=== PATIENT | female | born 1945 | race Caucasian/White ===

== ENCOUNTER 2016-06-11 10:30 | Outpatient (CLI) | payer MEDICARE, OTHER | END 2016-06-11 10:31 | disposition home or self-care (01) | DX: M10.9 Gout, unspecified (principal) ==

== ENCOUNTER 2016-07-16 08:06 | Outpatient (CLI) | payer MEDICARE, OTHER | END 2016-07-16 08:07 | disposition home or self-care (01) | DX: Z00.00 Encounter for general adult medical examination without abnormal findings (principal); E11.9 Type 2 diabetes mellitus without complications ==

== ENCOUNTER 2016-10-14 10:06 | Outpatient (CLI) | payer MEDICARE, OTHER | END 2016-10-14 10:07 | disposition home or self-care (01) | DX: E11.9 Type 2 diabetes mellitus without complications (principal); E78.5 Hyperlipidemia, unspecified; I10 Essential (primary) hypertension; E55.9 Vitamin D deficiency, unspecified ==

== ENCOUNTER 2017-01-09 10:22 | Outpatient (CLI) | payer MEDICARE, OTHER ==
[2017-01-09 17:53] LABS: BASOPHILS % (AUTO) 0.3 %; EOSINOPHILS # (AUTO) 0.6 10^3/uL (0.0-0.7); EOSINOPHILS % (AUTO) 5.6 %; HCT - HEMATOCRIT 45.2 % (37.0-47.0); HGB - HEMOGLOBIN 14.7 g/dL (12.0-16.0); LYMPHOCYTES # (AUTO) 2.8 10^3/uL (1.5-3.5); LYMPHOCYTES % (AUTO) 26.3 %; MEAN CORPUSCULAR HEMOGLOBIN 29.3 pg (27.0-31.0); MEAN CORPUSCULAR HGB CONC 32.5 g/dL (32.0-36.0); MEAN CORPUSCULAR VOLUME 90.1 fL (81.0-99.0); MEAN PLATELET VOLUME 9.7 fL (7.9-10.8); MONOCYTES # (AUTO) 0.6 10^3/uL (0.0-1.0); MONOCYTES % (AUTO) 5.9 %; NEUTROPHILS # (AUTO) 6.6 10^3/uL (1.5-6.6); NEUTROPHILS % (AUTO) 61.9 %; NUCLEATED RED BLOOD CELLS AUTO 0.2 /100WBC; RED BLOOD COUNT 5.01 10^6/uL (4.20-5.40); RED CELL DISTRIBUTION WIDTH 14.4 % (12.0-15.0); UNCORRECTED WHITE BLOOD COUNT 10.6 x10^3/uL; WHITE BLOOD COUNT 10.6 x10^3/uL (4.8-10.8)
[2017-01-09 18:19] LABS: HEMOGLOBIN A1C 0.79 g/dL
[2017-01-09 18:27] LABS: ALBUMIN/GLOBULIN RATIO 1.3 (1.0-2.2); BILIRUBIN,TOTAL 0.9 mg/dL (0.2-1.0); BUN - BLOOD UREA NITROGEN 23 mg/dL (6-20); CALCIUM 9.1 mg/dL (8.5-10.3); CARBON DIOXIDE - CO2 25 mmol/L (21-32); CHLORIDE 103 mmol/L (101-111); CHOL/HDL RATIO 4.6 (<4.4); CHOLESTEROL 142 mg/dL; GFR - MDRD 55 (>89); GLUCOSE 194 mg/dL (70-100); HDL CHOLESTEROL 31 mg/dL; LDL/HDL RATIO 2.8 (<4.4); POTASSIUM 3.4 mmol/L (3.5-5.0); SODIUM 136 mmol/L (135-145); TOTAL PROTEIN 6.1 g/dL (6.7-8.2); TRIGLYCERIDES 122 mg/dL; VLDL CHOLESTEROL 24 mg/dL
== END 2017-01-09 10:23 | disposition home or self-care (01) ==
LOC: LAB.F 10:22
PROVIDERS: ATTEND Family Medicine
DX: Z00.00 Encounter for general adult medical examination without abnormal findings (principal); I10 Essential (primary) hypertension; E11.9 Type 2 diabetes mellitus without complications; E78.5 Hyperlipidemia, unspecified; E55.9 Vitamin D deficiency, unspecified; I89.0 Lymphedema, not elsewhere classified
CPT/HCPCS: 36415; 80053; 80061; 82306; 83036; 85025

== ENCOUNTER 2017-09-10 10:10 | Outpatient (CLI) | payer MEDICARE, OTHER ==
[2017-09-10 18:40] LABS: HB2 TOTAL 16.2 g/dL; HEMOGLOBIN A1C 1.25 g/dL; HEMOGLOBIN A1C % 9.2 % (4.6-6.2)
== END 2017-09-10 10:11 | disposition home or self-care (01) ==
LOC: LAB.F 10:10
PROVIDERS: ATTEND Family Medicine
DX: E11.9 Type 2 diabetes mellitus without complications (principal)
CPT/HCPCS: 36415; 83036

== ENCOUNTER 2018-01-18 13:39 | Outpatient (CLI) | payer MEDICARE, OTHER ==
[2018-01-18 20:20] LABS: HB2 TOTAL 15.7 g/dL; HEMOGLOBIN A1C 0.83 g/dL
== END 2018-01-18 13:40 | disposition home or self-care (01) ==
LOC: LAB.F 13:39
PROVIDERS: ATTEND Family Medicine
DX: E11.9 Type 2 diabetes mellitus without complications (principal)
CPT/HCPCS: 36415; 80048; 83036

== ENCOUNTER 2018-04-30 08:00 | Outpatient (CLI) | payer MEDICARE, OTHER ==
[2018-04-30 13:27] LABS: MUDS CUTOFF CONCENTRATIONS CUTOFF CONC BELOW:
[2018-04-30 13:54] LABS: AMPHETAMINE SCREEN,URINE NEGATIVE (NEGATIVE); BENZODIAZEPINES SCREEN, URINE NEGATIVE (NEGATIVE); COCAINE SCREEN URINE NEGATIVE (NEGATIVE); METHADONE SCREEN, URINE NEGATIVE (NEGATIVE); METHAMPHETAMINES SCREEN, URINE NEGATIVE (NEGATIVE); OPIATE SCREEN, URINE NEGATIVE (NEGATIVE); TRICYCLIC ANTIDEPRESSANT,URINE NEGATIVE (NEGATIVE)
[2018-04-30 13:55] LABS: OXYCODONE SCREEN, URINE POSITIVE (NEGATIVE); PROPOXYPHENE SCREEN, URINE NEGATIVE (NEGATIVE)
== END 2018-04-30 23:59 ==
LOC: LAB.R 08:00
PROVIDERS: ATTEND Nurse Practitioner Family
DX: Z79.891 Long term (current) use of opiate analgesic (principal)
CPT/HCPCS: 80306

== ENCOUNTER 2018-07-06 08:08 | Outpatient (CLI) | payer MEDICARE, OTHER ==
[2018-07-06 10:45] LABS: HGB - HEMOGLOBIN 15.5 g/dL (12.0-16.0); MEAN CORPUSCULAR HEMOGLOBIN 29.3 pg (27.0-31.0); MEAN CORPUSCULAR HGB CONC 33.8 g/dL (32.0-36.0); MEAN CORPUSCULAR VOLUME 86.7 fL (81.0-99.0); RED BLOOD COUNT 5.27 10^6/uL (4.20-5.40); RED CELL DISTRIBUTION WIDTH 14.4 % (12.0-15.0); WHITE BLOOD COUNT 10.3 x10^3/uL (4.8-10.8)
[2018-07-06 10:46] LABS: ALBUMIN 3.7 g/dL (3.2-5.5); ALBUMIN/GLOBULIN RATIO 1.4 (1.0-2.2); ALKALINE PHOSPHATASE 60 IU/L (42-121); ALT ALANINE AMINOTRANSFERASE 40 IU/L (10-60); AST ASPARTATE AMINOTRANSFERASE 38 IU/L (10-42); BILIRUBIN,TOTAL 1.1 mg/dL (0.2-1.0); BUN - BLOOD UREA NITROGEN 25 mg/dL (6-20); CHOL/HDL RATIO 3.6 (<4.4); CHOLESTEROL 109 mg/dL; CREATININE 0.9 mg/dL (0.4-1.0); GFR - MDRD 62 (>89); HDL CHOLESTEROL 30 mg/dL; LDL CHOLESTEROL,CALCULATED 55 mg/dL; LDL/HDL RATIO 1.8 (<4.4); TOTAL PROTEIN 6.3 g/dL (6.7-8.2); VLDL CHOLESTEROL 24 mg/dL
[2018-07-06 11:04] LABS: HB2 TOTAL 17.1 g/dL; HEMOGLOBIN A1C 0.7 g/dL; HEMOGLOBIN A1C % 5.9 % (4.6-6.2)
[2018-07-06 11:19] LABS: CALCIUM 9.1 mg/dL (8.5-10.3); CARBON DIOXIDE - CO2 25 mmol/L (21-32); CHLORIDE 103 mmol/L (101-111); GLUCOSE 127 mg/dL (70-100); SODIUM 139 mmol/L (135-145)
== END 2018-07-06 08:09 | disposition home or self-care (01) ==
LOC: LAB.F 08:08
PROVIDERS: ATTEND Family Medicine
DX: Z00.00 Encounter for general adult medical examination without abnormal findings (principal); E11.8 Type 2 diabetes mellitus with unspecified complications
CPT/HCPCS: 36415; 80053; 80061; 83036; 83721; 85027

== ENCOUNTER 2019-05-23 13:17 | Outpatient (CLI) | payer MEDICARE, OTHER ==
--- NOTE | 2019-05-24 14:07 | Mammography Report ---
Reason: SELF REFERRING MAMMO Procedure Date: 05/23/2019 Accession Number: [id number] / [id number] Procedure: MGS - Screening Mammo Dig Bilat CPT Code: Final Report FULL RESULT: EXAM: Screening Mammo Dig Bilat DATE: 05/23/2019 2:03 PM CLINICAL HISTORY: Routine screening TECHNIQUE: (B) - Bilateral CC and MLO views were obtained. COMPARISON: 02/16/2013, 01/08/2012, 12/24/2010 PARENCHYMAL PATTERN: (A) - The breasts demonstrate scattered fibroglandular densities bilaterally. FINDINGS: Right: No significant interval change. There are no suspicious masses, calcifications, or areas of distortion. Needs repeat nipple in profile view. Left: New 6 mm cluster of microcalcifications in the 12:30 position 7 to 8 cm from the nipple. Needs magnification views and repeat nipple in profile view. IMPRESSION: Incomplete examination. BI-RADS category 0. Needs left breast magnification views and bilateral nipple in profile views. RECOMMENDATION: (ADDMAM) - Recommend additional mammographic views. Bilateral BI-RADS CATEGORY: (0) - Incomplete Examination - need additional evaluation. STANDARD QUALIFYING STATEMENTS: 1. This examination was not reviewed with the aid of Computer-Aided Detection (CAD). 2. A negative or benign imaging report should not preclude biopsy if clinically suspicious findings are present. 3. Dense breasts may obscure an underlying neoplasm. 4. This examination was reviewed without the aid of 3D breast imaging (tomosynthesis).
== END 2019-05-23 13:18 | disposition home or self-care (01) ==
LOC: DI.S 13:17
PROVIDERS: ATTEND Family Medicine
DX: Z12.31 Encounter for screening mammogram for malignant neoplasm of breast (principal); R92.1 Mammographic calcification found on diagnostic imaging of breast
CPT/HCPCS: 77067

== ENCOUNTER 2019-06-20 11:06 | Outpatient (CLI) | payer MEDICARE, OTHER ==
--- NOTE | 2019-06-20 12:37 | Mammography Report ---
Reason: ABNORMAL MAMMO Procedure Date: 06/20/2019 Accession Number: [id number] / [id number] Procedure: JOSE L - Diag Special Views Dig LT CPT Code: Final Report FULL RESULT: EXAM: Diag Special Views Dig LT DATE: 06/20/2019 12:08 PM CLINICAL HISTORY: Diagnostic examination. The patient is recalled from screening for calcifications seen in the left breast. TECHNIQUE: (L) - Left spot magnified CC, spot magnified LM, LM and CC images are obtained. COMPARISON: 05/23/2019 through 12/24/2010. PARENCHYMAL PATTERN: (A) - The breast(s) demonstrate(s) scattered fibroglandular densities. FINDINGS: The left breast grouping of calcifications 7 cm from the nipple in the central left breast are redemonstrated and demonstrate pleomorphism, suspicious. There are no suspicious masses or areas of distortion. IMPRESSION: Suspicious findings. BI-RADS category 4. RECOMMENDATION: (BIOPSY) - left breast stereotactic biopsy. BI-RADS CATEGORY: 4A STANDARD QUALIFYING STATEMENTS: 1. This examination was not reviewed with the aid of Computer-Aided Detection (CAD). 2. A negative or benign imaging report should not preclude biopsy if clinically suspicious findings are present. 3. Dense breasts may obscure an underlying neoplasm. 4. This examination was reviewed with the aid of 3D breast imaging (tomosynthesis).
== END 2019-06-20 11:07 | disposition home or self-care (01) ==
LOC: DI 11:06
PROVIDERS: ATTEND Family Medicine
DX: R92.1 Mammographic calcification found on diagnostic imaging of breast (principal)

== ENCOUNTER 2019-07-18 10:15 | Outpatient (CLI) | payer MEDICARE, OTHER ==
--- NOTE | 2019-07-19 16:08 | Ultrasound Report ---
Reason: ENDOCERVICAL POLYP Procedure Date: 07/18/2019 Accession Number: [id number] / [id number] Procedure: US - Pelvic w/Transvaginal CPT Code: Final Report FULL RESULT: EXAM: PELVIC ULTRASOUND. EXAM DATE: 07/18/2019 11:55 AM. CLINICAL HISTORY: Endocervical polyp. COMPARISON: PELVIC 12/23/2010 4:46 PM. TECHNIQUE: Realtime transabdominal pelvic scan performed to identify the uterus and adnexa and as an overview of other pelvic structures, followed by transvaginal scan to provide greater detail of the uterus and adnexa, with static image documentation. FINDINGS: Uterus: 9.7 x 5.7 x 6.4 cm, volume 185 cc. Anteverted position. Masses: Several small fibroids were seen. The largest was located posteriorly, appears partially calcified, and was measured at 4.6 x 4.2 x 4.0 cm. Endometrium: 19 mm. Fluid-filled, with a small 2 mm fluid channel in the anterior endometrial wall. No endometrial polyps detected on current study. Cervix: Several nabothian cysts were seen. Right Ovary: 4.1 x 2.2 x 2.5 cm, volume 11.8 cc. Normal echotexture and blood flow. Left Ovary: 2.8 x 2.1 x 2.3 cm, volume 7.0 cc. Normal echotexture and blood flow. 1.2 x 1.0 x 1.2 cm cyst. Free Fluid: No free fluid in the posterior cul-de-sac. Other: None. IMPRESSION: Fluid-filled endometrial stripe. Uterine fibroids. RADIA
== END 2019-07-18 10:16 | disposition home or self-care (01) ==
LOC: DI 10:15
PROVIDERS: ATTEND Obstetrics & Gynecology
DX: D25.9 Leiomyoma of uterus, unspecified (principal)
CPT/HCPCS: 76830; 76856

== ENCOUNTER 2019-08-05 09:53 | Outpatient (CLI) | payer MEDICARE, OTHER ==
[2019-08-05 10:32] LABS: BASOPHILS # (AUTO) 0.1 10^3/uL (0.0-0.1); BASOPHILS % (AUTO) 0.7 %; EOSINOPHILS # (AUTO) 0.5 10^3/uL (0.0-0.7); EOSINOPHILS % (AUTO) 4.4 %; HGB - HEMOGLOBIN 15.5 g/dL (12.0-16.0); LYMPHOCYTES # (AUTO) 2.9 10^3/uL (1.5-3.5); LYMPHOCYTES % (AUTO) 25.4 %; MEAN CORPUSCULAR HEMOGLOBIN 27.9 pg (27.0-31.0); MEAN CORPUSCULAR HGB CONC 31.8 g/dL (32.0-36.0); MEAN CORPUSCULAR VOLUME 87.8 fL (81.0-99.0); MEAN PLATELET VOLUME 10.6 fL (7.9-10.8); MONOCYTES # (AUTO) 0.8 10^3/uL (0.0-1.0); MONOCYTES % (AUTO) 7.4 %; NEUTROPHILS % (AUTO) 61.7 %; PLT - PLATELET COUNT 270 10^3/uL (130-450); RED BLOOD COUNT 5.56 10^6/uL (4.20-5.40); RED CELL DISTRIBUTION WIDTH 14.1 % (12.0-15.0); WHITE BLOOD COUNT 11.3 x10^3/uL (4.8-10.8)
[2019-08-05 10:45] LABS: ALBUMIN 3.7 g/dL (3.2-5.5); ALBUMIN/GLOBULIN RATIO 1.3 (1.0-2.2); BILIRUBIN,TOTAL 1.1 mg/dL (0.2-1.0); CALCIUM 9.2 mg/dL (8.5-10.3); CREATININE 1.1 mg/dL (0.4-1.0); TOTAL PROTEIN 6.5 g/dL (6.7-8.2)
[2019-08-05 10:55] LABS: HB2 TOTAL 16.3 g/dL; HEMOGLOBIN A1C 0.75 g/dL; HEMOGLOBIN A1C % 6.4 % (4.6-6.2)
== END 2019-08-05 09:54 | disposition home or self-care (01) ==
LOC: LAB 09:53
PROVIDERS: ATTEND Obstetrics & Gynecology
DX: Z01.818 Encounter for other preprocedural examination (principal); N95.0 Postmenopausal bleeding; N84.1 Polyp of cervix uteri; E11.9 Type 2 diabetes mellitus without complications; Z79.4 Long term (current) use of insulin
CPT/HCPCS: 36415; 80053; 83036; 85025

== ENCOUNTER 2019-08-05 10:32 | Outpatient (CLI) | payer MEDICARE, OTHER ==
--- NOTE | 2019-08-05 18:31 | XRAY Report ---
Reason: POST MENOPAUSAL BLEEDING;ENDOCERVICAL POLP Procedure Date: 08/05/2019 Accession Number: [id number] / [id number] Procedure: XR - Chest 2 View X-Ray CPT Code: 50754 Final Report FULL RESULT: EXAM: CHEST RADIOGRAPHY EXAM DATE: 08/05/2019 10:47 AM. CLINICAL HISTORY: Preoperative chest radiograph. COMPARISON: Chest radiograph 02/17/2009. TECHNIQUE: 2 views. FINDINGS: Lungs/Pleura: No focal airspace opacity. No pleural effusion or pneumothorax. Mediastinum: Cardiomediastinal silhouette is within normal limits. Pulmonary vasculature is unremarkable. Other: None. IMPRESSION: No acute cardiopulmonary abnormality. RADIA
== END 2019-08-05 10:33 | disposition home or self-care (01) ==
LOC: DI 10:32
PROVIDERS: ATTEND Obstetrics & Gynecology
DX: Z01.818 Encounter for other preprocedural examination (principal); N95.0 Postmenopausal bleeding; N84.1 Polyp of cervix uteri; E11.9 Type 2 diabetes mellitus without complications; Z79.4 Long term (current) use of insulin
CPT/HCPCS: 36415; 71046; 80053; 83036; 85025; 93005

== ENCOUNTER 2019-08-15 09:16 | Outpatient (CLI) | payer MEDICARE, OTHER | END 2019-08-15 09:17 | disposition home or self-care (01) | LOC: LAB 09:16 | PROVIDERS: ATTEND Obstetrics & Gynecology | DX: Z01.812 Encounter for preprocedural laboratory examination (principal); N95.0 Postmenopausal bleeding; N84.1 Polyp of cervix uteri; E11.9 Type 2 diabetes mellitus without complications | CPT/HCPCS: 36415; 86850; 86900; 86901 ==

== ENCOUNTER 2019-08-17 09:14 | Day surgery (SDC) | payer MEDICARE, OTHER ==
--- NOTE | 2019-08-05 09:58 | CONSULTATION NOTE ---
Consultation Report: I saw this patient today for a preanesthesia consult. She is scheduled for surgery on 08/17/19. She is morbidly obese. She is diabetic taking both insulin and oral antihyperglycemic agents. She denies any history of chest pain/pressure. Denies any history of IA's. Also, denies any history of stroke(s) or stroke like symptoms. She denies any lung disease. She is not a smoker. She has some chronic pain and is on mcc opioid therapy. 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 She is able to walk only short distances because of arthritic knees.She is on antihypertensive meds for BP control. She does get some swelling in her feet and ankles and takes lasix to help with that. She is not on any beta blockers. She denies any history of CHF. We will be getting some labs including A1c and an EKG today. I explained the anesthetic plan to her and she agreed to the same. She had no further questions for me
[~2019-08-17 09:14] MED LIST: CEFAZOLIN SODIUM IN 0.9 % NACL 2 GM/100 ML BAG IV ONE
[2019-08-17] MEDS ORDERED: ONDANSETRON 4 MG/2 ML VIAL IVP ONE (09:15)
[2019-08-17] MEDS ORDERED: MIDAZOLAM 2 MG/2 ML VIAL IVP ONE (09:15)
[2019-08-17] MEDS ORDERED: DEXAMETHASONE 4 MG/ML VIAL IVP ONE (09:15)
[2019-08-17] MEDS ORDERED: LIDOCAINE-MPF 2% 5 ML VIAL IM ONE (09:15)
[2019-08-17] MEDS ORDERED: KETOROLAC 30 MG/ML VIAL IVP ONE (09:15)
[2019-08-17] MEDS ORDERED: ePHEDrine 50 MG/ML VIAL IVP ONE (09:15)
[2019-08-17] MEDS ORDERED: PROPOFOL 200 MG/20 ML VIAL IVP ONE (09:15)
[2019-08-17] MEDS ORDERED: LACTATED RINGERS 1,000 ML IV ONE (10:00)
--- NOTE | 2019-08-17 10:03 | ANESTHESIA ---
Pre-Anesthesia VS, & Labs - Diagnosis post menopausal bleeding - Procedure myosure hysteroscopy Vital Signs: Temp Pulse Resp BP Pulse Ox 37.3 C 84 18 167/94 H 94 08/17/19 09:37 08/17/19 09:37 08/17/19 09:37 08/17/19 09:37 08/17/19 09:37 Height 5 ft 4 in Weight (kg) 112.3 kg - Is Patient ?: No Home Medications and Allergies Home Medications: Ambulatory Orders Allopurinol [Zyloprim] 300 mg PO DAILY 08/05/19 Aspirin [Aspirin EC] 81 mg PO DAILY 08/05/19 Cholecalciferol [Vitamin D3] 5,000 unit PO DAILY 08/05/19 DULoxetine [Cymbalta] 20 mg PO BID 08/05/19 Dulaglutide [Trulicity] 1.5 mg SQ OAW 08/05/19 Felodipine [Felodipine ER] 10 mg PO DAILY 08/05/19 Furosemide 40 mg PO DAILY 08/05/19 Insulin Glargine,Hum.rec.anlog [Touhedyo Solostar] 90 - 100 unit SUBQ DAILY 08/05/19 Oxycodone HCl/Acetaminophen [Oxycodone-Acetaminophen 10-325] 1 each PO DAILY 08/05/19 Potassium Chloride [Klor-Con 10] 10 meq PO DAILY 08/05/19 Quinapril HCl 40 mg PO DAILY 08/05/19 Simvastatin 10 mg PO QPM 08/05/19 metFORMIN [Glucophage] 500 mg PO QDBREAKFAST 08/05/19 traZODone [Desyrel] 50 - 100 mg PO HS PRN 08/05/19 Ibuprofen [Advil] 4 mg PO PRN 08/17/19 Allopurinol [Zyloprim] 300 mg PO DAILY 08/05/19 Aspirin [Aspirin EC] 81 mg PO DAILY 08/05/19 Cholecalciferol [Vitamin D3] 5,000 unit PO DAILY 08/05/19 DULoxetine [Cymbalta] 20 mg PO BID 08/05/19 Dulaglutide [Trulicity] 1.5 mg SQ OAW 08/05/19 Felodipine [Felodipine ER] 10 mg PO DAILY 08/05/19 Furosemide 40 mg PO DAILY 08/05/19 Insulin Glargine,Hum.rec.anlog [Toujeo Solostpraveen] 90 - 100 unit SUBQ DAILY 08/05/19 Oxycodone HCl/Acetaminophen [Oxycodone-Acetaminophen 10-325] 1 each PO DAILY 08/05/19 Potassium Chloride [Klor-Con 10] 10 meq PO DAILY 08/05/19 Quinapril HCl 40 mg PO DAILY 08/05/19 Simvastatin 10 mg PO QPM 08/05/19 metFORMIN [Glucophage] 500 mg PO QDBREAKFAST 08/05/19 traZODone [Desyrel] 50 - 100 mg PO HS PRN 08/05/19 Ibuprofen [Advil] 4 mg PO PRN 08/17/19 Allergies/Adverse Reactions: Allergies Allergy/AdvReac Type Severity Reaction Status Date / Time Penicillins Allergy Rash Verified 08/05/19 09:28 Anes History & Medical History - Anesthetic History Anesthesia Complications: reports: No previous complications Family history of Anesthesia Complications: Denies Family history of Malignant Hyperthermia: Denies - Medical History Cardiovascular: reports: Hypertension, High cholesterol, Valve disorder Pulmonary: reports: Sleep apnea Gastrointestinal: reports: GERD, Ulcers, Colon polyps Urinary: reports: Incontinence Neuro: reports: None Musculoskeletal: reports: Osteoarthritis, Gout, Chronic back pain Endocrine/Autoimmune: reports: Type 2 diabetes Blood Disorders: reports: None Skin: reports: Eczema Smoking Status: Former smoker (quit in 1967) Psychosocial: reports: No issues indicated - Surgical History General: Colonoscopy Gynecologic: Dilation and currettage Orthopedic: Other Results - EKG Results EKG Comparison: Reviewed EKG (BBB otherwise NSR) Exam General: Alert, Oriented x3, Cooperative, No acute distress Dental: Other (top broken tooth) Mouth Openin Fingerbreadth Neck Mobility: Normal Mallampati classification: II Thyromental Distance: 4-6 cm Respiratory: Lungs clear, Normal breath sounds, No respiratory distress, No accessory muscle use Cardiovascular: Regular rate, Normal S1, Normal S2, No murmurs Abdomen: Normal bowel sounds, Soft, No tenderness, No hepatospenomegaly, No masses Extremities: No clubbing, No cyanosis, No edema, Normal pulses, No tenderness/swelling Neurological: Normal gait, Normal speech, Strength at 5/5 X4 ext, Normal tone, Sensation intact, Cranial nerves 3-12 NL, Reflexes 2+ Mental/Cognitive Status: Alert/Oriented X3, Normal for patient Cognitive Status: Within normal limits Plan Anesthesia Type: General Consent for Procedure(s) Verified and Reviewed: Yes Code Status: Attempt Resuscitation ASA classification: 3-Severe systemic disease Is this case an emergency?: No
[2019-08-17] MEDS ORDERED: KETOROLAC 15 MG/ML VIAL ONE (12:31)
[2019-08-17] MEDS ORDERED: BUPIVACAINE 0.25% PF 30 ML VIAL ONE (14:44)
[2019-08-17] MEDS ORDERED: LIDOCAINE 2%-EPI 1:100000 20 ML MDV ONE (14:44)
[2019-08-17] MEDS ORDERED: SILVER NITRATE APPLICATOR TOP ONE (14:44)
[2019-08-17] MEDS ORDERED: LIDOCAINE 1%-EPI 1:100000 30 ML MDV SUBQ ONE ×2 (16:17)
[2019-08-17] MEDS ORDERED: oxyCODONE 5 MG TABLET PO PRN (16:18)
[2019-08-17] MEDS ORDERED: LORazepam 2 MG/ML VIAL IVP PRN (16:18)
[2019-08-17] MEDS ORDERED: ONDANSETRON 4 MG/2 ML VIAL IVP PRN (16:18)
[2019-08-17] MEDS ORDERED: BUPIVACAINE 0.25% PF 30 ML VIAL SUBQ ONE ×2 (16:18)
--- NOTE | 2019-08-17 16:23 | OPERATIVE REPORT ---
Operative Report - General Planned Procedure: Polypectomy, D&C with Myosure Pre-Op Diagnosis: large cervical polyp Procedure Performed: Polypectomy and D&C with Myosure Post Op Diagnosis: large cervical polyp with endometrial polyps - Procedure Note Primary Surgeon: Nikita Eddy MD Anesthesia Provider: Arturo Doll CRNA Anesthesia Technique: General LMA Pathology: large cervical polyp, endometrial polyps IV Fluids (mL): 500 Estimated Blood Loss (mL): 5 Urine Output (mL): 100 Indications: large cervical polyp Complications: None
[2019-08-17 16:54] VITALS: BP 162/85
--- NOTE | 2019-08-18 07:26 | OPERATIVE REPORT ---
DATE OF SERVICE: 08/17/2019 Physician: Nikita Eddy MD PREOPERATIVE DIAGNOSES 1. Large cervical polyp. 2. Thickened endometrium. POSTOPERATIVE DIAGNOSES: Large cervical polyp and endometrial polyps. PROCEDURE PERFORMED: Hysteroscopy with resection of cervical polyp and D and C. SURGEON: Nikita Eddy MD ANESTHESIA PROVIDER: Arturo Doll CRNA. ANESTHETIC: General via LMA. ESTIMATED BLOOD LOSS: 500 mL; deficit on the MyoSure is 350. URINE OUTPUT: 100 mL. FINDINGS: Upon placing the speculum, there was evidence of a large cervical polyp protruding into the vaginal canal. Upon entering the hysteroscope, there was evidence of multiple endometrial polyps. Following adequate general anesthesia, the patient was [facility] Pelvic examination was unrewarding secondary to abdominal wall thickness. At this point, she was prepped and draped in the usual fashion. A timeout was performed, in which issues were addressed. A speculum was placed. Cervix visualized and a large cervical polyp was noted to be protruding out the cervical canal. The cervix was grasped with a single-tooth tenaculum. A paracervical block with 1% lidocaine, 5 mL was placed in each uterosacral ligament. Care was taken to aspirate every 2 mL to decrease risk of intravascular injection. At this point, the cervix was dilated up to 7 mm. The hysteroscope was introduced. At this point, the base of the polyp was noted to be attached on the right posterior portion of the endometrial cavity. There were also multiple polyps noted throughout. The polyp was then grasped with ring forceps and avulsed from its pedicle. The hysteroscope was then used to resect the pedicle down to the wall of the uterus, the additional polyps were then resected with the MyoSure. At this point, there was no evidence of any bleeding. Both cornu were visualized, the uterus sounded to 8 cm. Patient tolerated the procedure well and was taken care to recovery in stable condition. Sponge and needle counts were correct. TD: 08/17/2019 16:31 DANG
== END 2019-08-17 09:15 | disposition home or self-care (01) ==
LOC: SDS 09:14
PROVIDERS: ATTEND Obstetrics & Gynecology
PROC: 0UB98ZZ Excision of Uterus, Via Natural or Artificial Opening Endoscopic (ICD-10-PCS; 2019-08-17)
PROC: 0UBC8ZZ Excision of Cervix, Via Natural or Artificial Opening Endoscopic (ICD-10-PCS; principal; 2019-08-17 10:30)
DX: N84.0 Polyp of corpus uteri (principal); N84.1 Polyp of cervix uteri; I10 Essential (primary) hypertension; E66.01 Morbid (severe) obesity due to excess calories; Z68.41 Body mass index [BMI] 40.0-44.9, adult; E11.40 Type 2 diabetes mellitus with diabetic neuropathy, unspecified; G47.30 Sleep apnea, unspecified; G89.29 Other chronic pain; M17.0 Bilateral primary osteoarthritis of knee; I89.0 Lymphedema, not elsewhere classified; F41.8 Other specified anxiety disorders; K59.09 Other constipation; K21.9 Gastro-esophageal reflux disease without esophagitis; E78.5 Hyperlipidemia, unspecified; E55.9 Vitamin D deficiency, unspecified; M10.9 Gout, unspecified; I25.10 Atherosclerotic heart disease of native coronary artery without angina pectoris; Z79.4 Long term (current) use of insulin; Z79.891 Long term (current) use of opiate analgesic; Z79.82 Long term (current) use of aspirin; Z87.891 Personal history of nicotine dependence; I38 Endocarditis, valve unspecified
CPT/HCPCS: 58558; J0690; J7120

== ENCOUNTER 2020-01-27 13:51 | Outpatient (CLI) | payer MEDICARE, OTHER | END 2020-01-27 13:52 | disposition home or self-care (01) | LOC: COV 13:51 | PROVIDERS: ATTEND Ophthalmology | DX: Z01.812 Encounter for preprocedural laboratory examination (principal); H25.12 Age-related nuclear cataract, left eye; Z20.828 Contact with and (suspected) exposure to other viral communicable diseases ==

== ENCOUNTER 2020-02-02 06:18 | Day surgery (SDC) | payer MEDICARE, OTHER ==
[2020-02-02] MEDS ORDERED: PHENYLEPHRINE 2.5% OPHTH 2 ML DROPS ONE (06:23)
[2020-02-02] MEDS ORDERED: CYCLOPENTOLATE 1% OPHTH DROPS 2 ML ONE (06:23)
[2020-02-02] MEDS ORDERED: PROPARACAINE 0.5% OPHTH DROPS 15 ML ONE (06:23)
[2020-02-02] MEDS ORDERED: KETOROLAC 0.45% OPHTH DROPS ONE (06:23)
[2020-02-02] MEDS ORDERED: LACTATED RINGERS 1,000 ML IV ONE (06:33)
[2020-02-02] MEDS ORDERED: VANCOMYCIN OPHTHALMI 8MG/0.8ML 8 MG/0.8 ML SYRINGE IO ONE (06:59)
[2020-02-02] MEDS ORDERED: EPINEPHrine 1 MG/ML AMP ONE (06:59)
[2020-02-02] MEDS ORDERED: TRIAMCIN/MOXIFLOX OPHTHALMIC 0.6 ML VIAL IO ONE (06:59)
[2020-02-02] MEDS ORDERED: BRIMONIDINE 0.2% OPHTH DROPS 5 ML ONE (06:59)
[2020-02-02] MEDS ORDERED: BSS/LIDOCAINE/EPINEPHRINE 1 ML SYRINGE ONE (06:59)
[2020-02-02] MEDS ORDERED: TIMOLOL 0.5% OPHTH DROPS ONE (06:59)
--- NOTE | 2020-02-02 07:11 | ANESTHESIA ---
Pre-Anesthesia VS, & Labs - Diagnosis L nuclear sclerotic cataract - Procedure L extraction cataract w/IOL Vital Signs: Temp Pulse Resp BP Pulse Ox 36.8 C 88 16 163/89 H 96 02/02/20 06:34 02/02/20 06:34 02/02/20 06:34 02/02/20 06:34 02/02/20 06:34 Height 5 ft 4.5 in Weight (kg) 112.5 kg - NPO >8 hours - Is Patient ?: No - Lab Results Current Lab Results: Laboratory Tests 02/02/20 06:40: POC Whole Bld Glucose 146 H Home Medications and Allergies Home Medications: Ambulatory Orders Gabapentin BID 02/01/20 Tolterodine [Detrol LA] 02/01/20 Allopurinol [Zyloprim] 300 mg PO DAILY 08/05/19 Aspirin [Aspirin EC] 81 mg PO DAILY 08/05/19 Cholecalciferol [Vitamin D3] 5,000 unit PO DAILY 08/05/19 Dulaglutide [Trulicity] 1.5 mg SQ OAW 08/05/19 Felodipine [Felodipine ER] 10 mg PO DAILY 08/05/19 Furosemide 40 mg PO DAILY 08/05/19 Insulin Glargine,Hum.rec.anlog [Toujeo Solostar] 90 - 100 unit SUBQ DAILY 08/05/19 Oxycodone HCl/Acetaminophen [Oxycodone-Acetaminophen 10-325] 1 each PO DAILY 08/05/19 Potassium Chloride [Klor-Con 10] 10 meq PO DAILY 08/05/19 Quinapril HCl 40 mg PO DAILY 08/05/19 Simvastatin 10 mg PO QPM 08/05/19 metFORMIN [Glucophage] 500 mg PO QDBREAKFAST 08/05/19 traZODone [Desyrel] 50 - 100 mg PO HS PRN 08/05/19 Ibuprofen [Advil] 4 mg PO PRN 08/17/19 Gabapentin BID 02/01/20 Tolterodine [Detrol LA] 02/01/20 Allergies/Adverse Reactions: Allergies Allergy/AdvReac Type Severity Reaction Status Date / Time Penicillins Allergy Rash Verified 02/02/20 06:43 Anes History & Medical History - Anesthetic History Anesthesia Complications: reports: No previous complications Family history of Anesthesia Complications: Denies Family history of Malignant Hyperthermia: Denies - Medical History Cardiovascular: reports: Hypertension, High cholesterol Pulmonary: reports: None Gastrointestinal: reports: None Urinary: reports: None Neuro: reports: None Musculoskeletal: reports: None Endocrine/Autoimmune: reports: Type 2 diabetes Blood Disorders: reports: None Skin: reports: Eczema Smoking Status: Former smoker (quit in 1967) Psychosocial: reports: Anxiety - Surgical History Gynecologic: Other Exam General: Alert, Oriented x3, Cooperative Dental: WNL Mouth Openin Fingerbreadth Neck Mobility: Normal Mallampati classification: II Thyromental Distance: 4-6 cm Respiratory: Lungs clear, Normal breath sounds, No respiratory distress Cardiovascular: Regular rate Neurological: Normal speech Mental/Cognitive Status: Alert/Oriented X3, Normal for patient Cognitive Status: Within normal limits Plan Anesthesia Type: MAC Consent for Procedure(s) Verified and Reviewed: Yes Code Status: Attempt Resuscitation ASA classification: 3-Severe systemic disease Is this case an emergency?: No
[2020-02-02] MEDS ORDERED: fentaNYL 100 MCG/2 ML VIAL IVP PRN (07:12)
[2020-02-02] MEDS ORDERED: MORPHINE 2 MG/ML CARPUJECT IVP PRN (07:12)
[2020-02-02] MEDS ORDERED: ATROPINE ABBOJECT 1 MG/10 ML SYRINGE IVP PRN (07:12)
[2020-02-02] MEDS ORDERED: ONDANSETRON 4 MG/2 ML VIAL IVP PRN (07:12)
[2020-02-02] MEDS ORDERED: HYDROmorphone 0.5 MG/0.5 ML SYRINGE IVP PRN (07:12)
[2020-02-02] MEDS ORDERED: ePHEDrine 50 MG/ML VIAL IVP PRN (07:12)
[2020-02-02] MEDS ORDERED: NALOXONE 0.4 MG/ML VIAL IVP PRN (07:12)
[2020-02-02] MEDS ORDERED: METOCLOPRAMIDE 10 MG/2 ML VIAL IVP PRN (07:12)
[2020-02-02] MEDS ORDERED: fentaNYL 100 MCG/2 ML VIAL IVP ONE (07:20)
[2020-02-02] MEDS ORDERED: MIDAZOLAM 2 MG/2 ML VIAL IVP ONE (07:20)
[2020-02-02 07:57] VITALS: BP 117/59
[2020-02-02] MEDS ORDERED: LACTATED RINGERS 1,000 ML IV SCH (08:00)
--- NOTE | 2020-02-02 08:29 | ANESTHESIA POST OP EVALUATION ---
Anesthesia Post Eval - Post Anesthesia Eval Vitals: Last Vital Signs Temp 36.5 C 02/02/20 07:57 Pulse 88 02/02/20 07:57 Resp 16 02/02/20 07:57 BP 117/59 L 02/02/20 07:57 Pulse Ox 94 02/02/20 07:57 CV Function Including HR & BP: positive: Stable Pain Control: positive: Satisfactory Nausea & Vomiting: positive: Negative Mental Status: positive: Baseline Respiratory Status: Airway Patent Hydration Status: Satisfactory Anesthesia Complications: positive: None
--- NOTE | 2020-02-02 09:23 | OPERATIVE REPORT ---
DATE OF SERVICE: 02/02/2020 Physician: Fco Mcneal MD PREOPERATIVE DIAGNOSIS: Visually significant cataract, left eye. This was her first cataract surger y. POSTOPERATIVE DIAGNOSIS: Visually significant cataract, left eye. This was her first cataract surge ry. PROCEDURE: Phacoemulsification with posterior chamber intraocular lens implant, left eye. SURGEON: Fco Mcneal MD ANESTHESIA: Monitored anesthesia care. COMPLICATIONS: None. OPERATIVE INDICATIONS: This is a 75-year-old woman with progressive vision loss in the left eye due to 4+ nuclear sclerotic cataract. Best corrected visual acuity was 20/30, with glare to 20/125 in th e left eye. Indications for surgery were overall decrease in vision, difficulty seeing words on a [facility] screen, difficulty reading; difficulty seeing words, closed caption or game scores on TV; diff iculty seeing street signs, difficulty with glare or bright lights in any situation, and difficulty t racking a golf ball. She was consented at length concerning risks and benefits of cataract surgery, after which she expressed a desire to proceed with surgery. OPERATIVE PROCEDURE: Patient was taken to OR #3 and placed under monitored anesthesia care. A surgi boris timeout was conducted confirming correct patient, correct procedure, and correct surgical site. She was given topical anesthesia, and then prepped and draped in the usual sterile fashion. The eye was entered at the 6 and 3 o'clock positions. Intracameral Shugarcaine was injected into the anterio r chamber, followed by Viscoat. A continuous-tear curvilinear capsulorrhexis was performed. The nuc leus was hydrodissected and phacoemulsified. The cortex was evacuated using automated infusion and a spiration. Provisc was injected in the capsular bag, and a 21.0 diopter intraocular lens was inserte d into the bag. Infusion and aspiration were used to evacuate the viscoelastic materials. The eye w as inflated to a physiologic pressure using a balanced salt solution and found to be watertight. Yousuf roximately 0.25 mL of a mixture of triamcinolone and moxifloxacin was injected transsclerally into th e vitreous in the inferotemporal quadrant. An additional 0.55 mL of a mixture of triamcinolone, moxi floxacin and vancomycin was injected subconjunctivally in the superior quadrant for infection and inf lammation prophylaxis. Wound integrity was checked with Weck-Ivelisse sponges. Patient was taken from [facility] Operating Room in good condition and given postoperative instructions. TD: 02/02/2020 07:56
== END 2020-02-02 06:19 | disposition home or self-care (01) ==
LOC: SDS 06:18
PROVIDERS: ATTEND Ophthalmology
DX: E11.36 Type 2 diabetes mellitus with diabetic cataract (principal); H25.12 Age-related nuclear cataract, left eye; I10 Essential (primary) hypertension; I25.10 Atherosclerotic heart disease of native coronary artery without angina pectoris; M19.90 Unspecified osteoarthritis, unspecified site; Z03.818 Encounter for observation for suspected exposure to other biological agents ruled out; Z79.4 Long term (current) use of insulin; Z79.899 Other long term (current) drug therapy; Z87.891 Personal history of nicotine dependence
CPT/HCPCS: 66984; A9270; J3490; J7120; U0004; V2632

== ENCOUNTER 2020-11-30 08:00 | Outpatient (CLI) | payer MEDICARE, OTHER, BC ==
--- NOTE | 2020-11-30 14:41 | XRAY Report ---
PROCEDURE: Shoulder 3 View LT INDICATIONS: DJD LEFT SHOULDER TECHNIQUE: 5 views of the shoulder were acquired. COMPARISON: None. FINDINGS: Bones: No fractures or dislocations. No suspicious bony lesions. Visualized ribs appear intact. D egenerative glenohumeral joint osteoarthritis is moderate, AC joint osteoarthritis is mild. Soft tissues: No suspicious soft tissue calcifications. IMPRESSION: No acute trauma found. Asymmetric osteoarthritis at the left shoulder, greater at the gl enohumeral joint and the acromioclavicular. Reviewed by: Pasquale Orta MD on 11/30/2020 2:39 PM PDT Approved by: Pasquale Orta MD on 11/30/2020 2:39 PM PDT Station ID: [id number]
== END 2020-11-30 23:59 | disposition home or self-care (01) ==
LOC: DI.S 08:00
PROVIDERS: ATTEND Emergency Medicine
DX: M19.012 Primary osteoarthritis, left shoulder (principal)

== ENCOUNTER 2021-05-25 06:58 | Inpatient (IN) | payer MEDICARE, OTHER ==
--- NOTE | 2021-05-25 07:27 | ED Physician Documentation ---
PD HPI Fall - Stated complaint Stated Complaint: GLF - Chief complaint Chief Complaint: Trauma Ext - History obtained from History obtained from: Patient - History of Present Illness Mechanism of injury: Tripped Fall distance: Standing position (she states she got up to go to the bathroom and her foot slipped on floor, leading to fall. Struck head and has neck pain too. Crawled to toilet and did go, noting some red blood with wiping. General weakness feeling this past week.) Where injury occurred: Home Timing - onset: How many hours ago (1), Today Injury(ies) location: Head, Neck. No: Chest, Abdomen Associated symptoms: Neck pain, Weakness (general weakness this past week). No: LOC, AMS, Paresthesias Worsens with: Movement Contributing factors: No: Anticoagulated, Intoxicated Similar symptoms before: Has not had sx before Recently seen: Not recently seen Review of Systems Constitutional: denies: Fever, Chills Nose: denies: Rhinorrhea / runny nose, Congestion Throat: denies: Sore throat Cardiac: denies: Chest pain / pressure, Palpitations Respiratory: denies: Dyspnea, Cough, Wheezing GI: reports: Abdominal Pain (intermittent cramping lower abd, with incontinence of urine, but no discomfort.), Bloody / black stool (notes red blood with wiping the past week. Denies melena.). denies: Nausea, Vomiting, Constipation, Diarrhea (but is looser.) : reports: Frequency. denies: Dysuria, Hematuria Skin: denies: Abrasion (s), Laceration (s) Neurologic: reports: Generalized weakness. denies: Focal weakness, Numbness Endocrine: denies: Weight loss PD PAST MEDICAL HISTORY - Past Medical History Cardiovascular: Hypertension Respiratory: None Neuro: None Endocrine/Autoimmune: Type 2 diabetes GI: None - Present Medications Home Medications: Ambulatory Orders Medication Instructions Recorded Confirmed Aspirin [Aspirin EC] 81 mg PO DAILY 08/05/19 08/17/19 Cholecalciferol [Vitamin D3] 5,000 unit PO DAILY 08/05/19 08/17/19 Dulaglutide [Trulicity] 1.5 mg SQ OAW 08/05/19 08/17/19 Felodipine [Felodipine ER] 10 mg PO DAILY 08/05/19 08/17/19 Furosemide 40 mg PO DAILY 08/05/19 08/17/19 Insulin Glargine,Hum.rec.anlog 90 - 100 unit SUBQ DAILY 08/05/19 08/17/19 [Toujeo Solostar] Oxycodone HCl/Acetaminophen 1 each PO DAILY 08/05/19 08/17/19 [Oxycodone-Acetaminophen 10-325] Potassium Chloride [Klor-Con 10] 10 meq PO DAILY 08/05/19 08/17/19 Quinapril HCl 40 mg PO DAILY 08/05/19 08/17/19 Simvastatin 10 mg PO QPM 08/05/19 08/17/19 allopurinoL [Zyloprim] 300 mg PO DAILY 08/05/19 08/17/19 metFORMIN [Glucophage] 500 mg PO QDBREAKFAST 08/05/19 08/17/19 traZODone [Desyrel] 50 - 100 mg PO HS PRN 08/05/19 08/17/19 Ibuprofen [Advil] 4 mg PO PRN 08/17/19 Gabapentin BID 02/01/20 Tolterodine [Detrol LA] 02/01/20 - Allergies Allergies/Adverse Reactions: Allergies Allergy/AdvReac Type Severity Reaction Status Date / Time Penicillins Allergy Rash Verified 05/25/21 07:12 - Living Situation Living Situation: reports: Alone (son lives nearby) Living Arrangement: reports: At home - Social History Smoking Status: Former smoker (quit in 1967) Does the pt drink ETOH?: No - Family History Family history: reports: Non contributory PD ED PE NORMAL - Vitals Vital signs reviewed: Yes - General General: Alert and oriented X 3, No acute distress, Well developed/nourished - HEENT HEENT: Other (some tenderness back of scalp.) - Neck Neck: Supple, no meningeal sign, No adenopathy, Other (tender left lower neck without defromity. ) - Cardiac Cardiac: No murmur. No: RRR (regular but tachycardic. ) - Respiratory Respiratory: Clear bilaterally - Abdomen Abdomen: Normal bowel sounds, Soft, Non tender, Non distended, Other (obese) - Female Female : Deferred - Rectal Rectal: Other (external hemorrhoids with mild local red blood. But a bit of rust red colored liquid on my finger as well. No melena. ) - Back Back: No CVA TTP - Derm Derm: Normal color, Warm and dry - Extremities Extremities: No tenderness to palpate, No calf tenderness / cord, Other (1+ edema in both lower legs/ankles. No tenderness. ) - Neuro Neuro: Alert and oriented X 3, No motor deficit, Normal speech Results - Vitals Vitals: Vital Signs - 24 hr 05/25/21 05/25/21 05/25/21 07:14 09:09 11:00 Temperature 37.2 C Heart Rate 106 H 97 93 Respiratory 20 17 21 Rate Blood Pressure 97/64 128/57 L 102/56 L O2 Saturation 94 90 L 92 Oxygen O2 Source Room air - Labs Labs: Laboratory Tests 05/25/21 05/25/21 05/25/21 07:57 07:57 08:55 WBC 17.7 H RBC 5.08 Hgb 14.9 Hct 44.8 MCV 88.2 MCH 29.3 MCHC 33.3 RDW 15.2 H Plt Count 245 MPV 11.8 H Neut # (Auto) 14.9 H Lymph # (Auto) 1.5 [place] # (Auto) 1.1 H Eos # (Auto) 0.1 Baso # (Auto) 0.1 Absolute Nucleated RBC 0.00 Nucleated RBC % 0.0 Sodium 133 L Potassium 4.2 Chloride 96 L Carbon Dioxide 21 Anion Gap 16.0 H BUN 108 H* Creatinine 4.0 H Estimated GFR (MDRD) 11 L Glucose 232 H Calcium 8.8 Magnesium 1.9 Total Bilirubin 1.8 H AST 28 ALT 30 Alkaline Phosphatase 95 Total Protein 6.5 L Albumin 3.6 Globulin 2.9 Albumin/Globulin Ratio 1.2 Lipase 29 Urine Color Urine Clarity Urine pH Ur Specific [place] Urine Protein Urine Glucose (UA) Urine Ketones Urine Occult Blood Urine Nitrite Urine Bilirubin Urine Urobilinogen Ur Leukocyte Esterase Ur Microscopic Review Urine Culture Comments Nasal Adenovirus (PCR) NOT DETECTED Nasal B. parapertussis DNA (PCR) NOT DETECTED Nasal Coronavir 229E PCR NOT DETECTED Nasal Coronavir HKU1 PCR NOT DETECTED Nasal Coronavir NL63 PCR NOT DETECTED Nasal Coronavir OC43 PCR NOT DETECTED Nasal Enterovir/Rhinovir PCR NOT DETECTED Nasal Influenza B PCR NOT DETECTED Nasal Influenza A PCR NOT DETECTED Nasal Parainfluen 1 PCR NOT DETECTED Nasal Parainfluen 2 PCR NOT DETECTED Nasal Parainfluen 3 PCR NOT DETECTED Nasal Parainfluen 4 PCR NOT DETECTED Nasal RSV (PCR) NOT DETECTED Nasal B.pertussis DNA PCR NOT DETECTED Nasal C.pneumoniae (PCR) NOT DETECTED [place]cy Human Metapneumo PCR NOT DETECTED Nasal M.pneumoniae (PCR) NOT DETECTED Nasal SARS-CoV-2 (PCR) NOT DETECTED 05/25/21 09:20 WBC RBC Hgb Hct MCV MCH MCHC RDW Plt Count MPV Neut # (Auto) Lymph # (Auto) [place] # (Auto) Eos # (Auto) Baso # (Auto) Absolute Nucleated RBC Nucleated RBC % Sodium Potassium Chloride Carbon Dioxide Anion Gap BUN Creatinine Estimated GFR (MDRD) Glucose Calcium Magnesium Total Bilirubin AST ALT Alkaline Phosphatase Total Protein Albumin Globulin Albumin/Globulin Ratio Lipase Urine Color YELLOW Urine Clarity CLEAR Urine pH 5.5 Ur Specific [place] 1.020 Urine Protein NEGATIVE Urine Glucose (UA) NEGATIVE Urine Ketones NEGATIVE Urine Occult Blood NEGATIVE Urine Nitrite NEGATIVE Urine Bilirubin NEGATIVE Urine Urobilinogen 0.2 (NORMAL) Ur Leukocyte Esterase NEGATIVE Ur Microscopic Review NOT INDICATED Urine Culture Comments NOT INDICATED Nasal Adenovirus (PCR) Nasal B. parapertussis DNA (PCR) Nasal Coronavir 229E PCR Nasal Coronavir HKU1 PCR Nasal Coronavir NL63 PCR Nasal Coronavir OC43 PCR Nasal Enterovir/Rhinovir PCR Nasal Influenza B PCR Nasal Influenza A PCR Nasal Parainfluen 1 PCR Nasal Parainfluen 2 PCR Nasal Parainfluen 3 PCR Nasal Parainfluen 4 PCR Nasal RSV (PCR) Nasal B.pertussis DNA PCR Nasal C.pneumoniae (PCR) [place] Human Metapneumo PCR Nasal M.pneumoniae (PCR) Nasal SARS-CoV-2 (PCR) - Rads (name of study) head CT Radiology: Prelim report reviewed (no ICH nor acute process), See rad report cervical CT Radiology: Prelim report reviewed (arthritic changes. no fracture), See rad report abd/pelvic CT Radiology: Prelim report reviewed (colitis of the left colon. ), See rad report left shoulder Radiology: Prelim report reviewed (no fractures), See rad report PD MEDICAL DECISION MAKING - ED course Complexity details: reviewed results (acute elevation creatinine. Could be prerenal with volume inadequate from GI illness, and/or toxic as she has taken "lots of Ibuprofen" for her abd pain the past few days. Is on ACEI and ARB for BP, so some toxicity there if dehydrated. ), considered differential (sounds like mechanical fall, but has had some blood rectally and lower abd cramps, some urinary incontinence. Can check labs and abd CT. from the fall, will get head/neck CT. ), d/w patient Departure - Departure Disposition: 66 [facility] DC/Xfer Clinical Impression: ALAN (acute kidney injury), Generalized weakness, Acute colitis Fall Qualifiers: Encounter type: initial encounter Qualified Code(s): W19.XXXA - Unspecified fall, initial encounter Condition: Stable Record reviewed to determine appropriate education?: Yes Discharge Date/Time: 05/25/21 11:57
[2021-05-25] MEDS ORDERED: KETOROLAC 15 MG/ML VIAL IVP STA (07:39)
[2021-05-25] MEDS ORDERED: ACETAMINOPHEN 325 MG TABLET PO STA (07:39)
[2021-05-25 08:04] LABS: BASOPHILS # (AUTO) 0.1 10^3/uL (0.0-0.1); BASOPHILS % (AUTO) 0.3 %; EOSINOPHILS # (AUTO) 0.1 10^3/uL (0.0-0.7); EOSINOPHILS % (AUTO) 0.3 %; HCT - HEMATOCRIT 44.8 % (37.0-47.0); HGB - HEMOGLOBIN 14.9 g/dL (12.0-16.0); LYMPHOCYTES # (AUTO) 1.5 10^3/uL (1.5-3.5); LYMPHOCYTES % (AUTO) 8.4 %; MEAN CORPUSCULAR HEMOGLOBIN 29.3 pg (27.0-31.0); MEAN CORPUSCULAR HGB CONC 33.3 g/dL (32.0-36.0); MEAN CORPUSCULAR VOLUME 88.2 fL (81.0-99.0); MEAN PLATELET VOLUME 11.8 fL (7.9-10.8); MONOCYTES # (AUTO) 1.1 10^3/uL (0.0-1.0); MONOCYTES % (AUTO) 6.4 %; NEUTROPHILS # (AUTO) 14.9 10^3/uL (1.5-6.6); NEUTROPHILS % (AUTO) 84.1 %; PLT - PLATELET COUNT 245 10^3/uL (130-450); RED BLOOD COUNT 5.08 10^6/uL (4.20-5.40); RED CELL DISTRIBUTION WIDTH 15.2 % (12.0-15.0); WHITE BLOOD COUNT 17.7 x10^3/uL (4.8-10.8)
--- NOTE | 2021-05-25 08:27 | XRAY Report ---
PROCEDURE: Shoulder 3 View LT INDICATIONS: fell, left shoulder pain TECHNIQUE: Views of the location were acquired. COMPARISON: None. FINDINGS: Bones: No fractures or dislocations. No suspicious bony lesions. Soft tissues: No suspicious soft tissue calcifications. IMPRESSION: 1. No acute abnormality of the left shoulder. 2. Degenerative changes of the left acromioclavicular joint and glenohumeral joint. Reviewed by: Gerardo Burgess on 05/25/2021 7:26 AM [facility] Approved by: Gerardo Burgess on 05/25/2021 7:26 AM [facility] Station ID: [id number]
[2021-05-25 08:33] LABS: ALBUMIN 3.6 g/dL (3.2-5.5); ALBUMIN/GLOBULIN RATIO 1.2 (1.0-2.2); BILIRUBIN,TOTAL 1.8 mg/dL (0.2-1.0); CALCIUM 8.8 mg/dL (8.5-10.3); MAGNESIUM 1.9 mg/dL (1.7-2.8); POTASSIUM 4.2 mmol/L (3.5-5.0); TOTAL PROTEIN 6.5 g/dL (6.7-8.2)
[2021-05-25] MEDS ORDERED: IOPAMIDOL-300 100 ML VIAL ONE (08:37)
[2021-05-25] MEDS ORDERED: SODIUM CHLORIDE 0.9% 1,000 ML IV STA ×2 (08:44→11:14)
[2021-05-25 10:03] LABS: BILIRUBIN,URINE NEGATIVE (NEGATIVE); GLUCOSE, URINE (UA) NEGATIVE (NEGATIVE); KETONES,URINE (UA) NEGATIVE (NEGATIVE); LEUKOCYTE ESTERASE, URINE NEGATIVE (NEGATIVE); NITRITE,URINE NEGATIVE (NEGATIVE); OCCULT BLOOD,URINE NEGATIVE (NEGATIVE); PH,URINE 5.5 PH (5.0-7.5); PROTEIN,URINE NEGATIVE (NEGATIVE); UROBILINOGEN,URINE 0.2 (NORMAL) E.U./dL (NORMAL)
[2021-05-25 10:04] LABS: B. PARAPERTUSSIS- RESP PCR PAN NOT DETECTED; B. PERTUSSIS- RESP PCR PANEL NOT DETECTED; C. PNEUMONIAE- RESP PCR PANEL NOT DETECTED; CORONAVIRUS 229E-RESP PCR NOT DETECTED; CORONAVIRUS HKU1-RESP PCR NOT DETECTED; CORONAVIRUS NL63-RESP PCR NOT DETECTED; CORONAVIRUS OC43-RESP PCR NOT DETECTED; HUMAN METAPNEUMOVIRUS NOT DETECTED; INFLUENZA A- RESP PCR PANEL NOT DETECTED; INFLUENZA B - RESP PCR PANEL NOT DETECTED; M. PNEUMONIAE- RESP PCR PANEL NOT DETECTED; PARAINFLUENZA VIRUS 1 NOT DETECTED; PARAINFLUENZA VIRUS 2 NOT DETECTED; PARAINFLUENZA VIRUS 3 NOT DETECTED; PARAINFLUENZA VIRUS 4 NOT DETECTED; RHINOVIRUS/ENTEROVIRUS NOT DETECTED; RSV- RESP PCR PANEL NOT DETECTED; SARS-CoV-2 -RESP PCR PANEL NOT DETECTED
[2021-05-25 10:05] LABS: CLARITY,URINE CLEAR (CLEAR)
--- NOTE | 2021-05-25 10:30 | CT Report ---
PROCEDURE: HEAD WO INDICATIONS: fell, struck head; head/neck pain TECHNIQUE: Noncontrast 4.5 mm thick angled axial sections acquired from the foramen magnum to the vertex. For r adiation dose reduction, the following was used: automated exposure control, adjustment of mA and/or kV according to patient size. COMPARISON: None. FINDINGS: Image quality: Excellent. CSF spaces: Basal cisterns are patent. No extra-axial fluid collections. Ventricles are normal in size and shape. Brain: No midline shift. No intracranial masses or hemorrhage. Linda-white matter interface is norm al. Skull and face: Calvarium and visualized facial bones are intact, without suspicious lesions. Sinuses: Visualized sinuses and mastoids are clear. IMPRESSION: No acute intracranial abnormality. Reviewed by: Gerardo Burgess on 05/25/2021 9:29 AM [facility] Approved by: Gerardo Burgess on 05/25/2021 9:[address] [facility] Station ID: [id number]
--- NOTE | 2021-05-25 10:33 | CT Report ---
PROCEDURE: CERVICAL SPINE WO INDICATIONS: fell, struck head; head/neck pain TECHNIQUE: Noncontrast 3 mm thick sections acquired from the skull base to the T4 level. Sagittal and coronal r eformats were then constructed. For radiation dose reduction, the following was used: automated exp osure control, adjustment of mA and/or kV according to patient size. COMPARISON: None. FINDINGS: Image quality: Excellent. Bones: No fractures or dislocations. Visualized superior ribs are intact. Multilevel degenerative changes with disc disease at C5-6 and C6-7. Soft tissues: Prevertebral soft tissues are normal in thickness. No paravertebral hematomas. No ap ical pneumothoraces. IMPRESSION: 1. No acute traumatic abnormality of the cervical spine. 2. Degenerative changes and degenerative disc disease. Reviewed by: Gerardo Burgess on 05/25/2021 9:32 AM [facility] Approved by: Gerardo Burgess on 05/25/2021 9:32 AM [facility] Station ID: [id number]
--- NOTE | 2021-05-25 10:38 | CT Report ---
PROCEDURE: Abdomen/Pelvis WO INDICATIONS: abd cramps and blood in stool TECHNIQUE: Noncontrast 5 mm thick sections acquired from the diaphragms to the symphysis. 5 mm coronal and sagi ttal reformats were then performed. For radiation dose reduction, the following was used: automated exposure control, adjustment of mA and/or kV according to patient size. COMPARISON: None. FINDINGS: Image quality: Excellent. ABDOMEN: Lung bases: Lung bases are clear. Heart size is normal. The coronary arteries have atherosclerotic calcifications. Solid organs: Liver and spleen are normal in size. Gallbladder is distended, however there are no s tones or wall thickening. The gallbladder contains punctate calcifications. Pancreas is normal in co ntours. No adrenal nodules. Kidneys are normal in size, without hydronephrosis or nephrolithiasis. Peritoneum and bowel: The left colon infiltrates wall thickening and minimal surrounding inflammation at the splenic flexure consistent with colitis. The remaining bowel loops demonstrate normal wall th ickness and caliber. No free fluid or air. Small hiatal hernia. Nodes and vessels: No retroperitoneal or mesenteric adenopathy by size criteria. Aorta and inferior vena cava are normal in caliber. The aorta has atherosclerotic calcifications. Miscellaneous: No ventral hernias. PELVIS: Genitourinary: Bladder wall thickness is normal. The uterus contains calcified fibroids. Pelvic phl eboliths are noted. The left ovary has a 1 cm follicle. Miscellaneous: No inguinal hernias or adenopathy. Bones: No suspicious bony lesions. No vertebral body compression fractures. Multilevel degenerativ e changes with intradiscal gas at multiple levels including C3-4, C4-5, and C5-6. IMPRESSION: 1. Colitis of the left colon, differential diagnosis includes infectious, inflammatory, or ischemic c olitis. 2. Gallbladder distention with no evidence of cholecystitis. 3. Coronary artery calcifications. Reviewed by: Gerardo Burgess on 05/25/2021 9:37 AM [facility] Approved by: Gerardo Burgess on 05/25/2021 9:37 AM [facility] Station ID: [id number]
[2021-05-25] MEDS ORDERED: ONDANSETRON 4 MG/2 ML VIAL IVP PRN (11:16)
[2021-05-25] MEDS ORDERED: SODIUM CHLORIDE FLUSH 0.9% 10 ML SYRINGE IVP PRN (11:16)
[2021-05-25] MEDS ORDERED: SODIUM CHLORIDE 0.9% 1,000 ML IV ONE (11:20)
--- NOTE | 2021-05-25 11:26 | HISTORY & PHYSICAL EXAMINATION ---
Chief Complaint - Chief Complaint Chief Complaint: s/p fall, weakness History of Present Illness - Admitted From Admitted From:: Jane - History Obtained From Records Reviewed: yes History obtained from: patient - History of Present Illness HPI Comment/Other: Patient is a 76-year-old female with medical history significant for diabetes mellitus type 2 on insulin, hypertension, gout, hyperlipidemia, diabetic neuropathy not, urinary incontinence, insomnia and chronic back pain who presented to the ED after a fall at home. She was trying to go to the bathroom and slipped and fell due to weakness she hit her head and neck but did not pass out. She reports she has been weak for the past 1 week. She reports chronic urinary incontinence. Today after going to the bathroom and having a bowel movement she noted bright red blood on the toilet paper when she cleaned up her self. She reports history of hemorrhoids. This was also confirmed by the ED physician to be present. Work-up in the ED included a CT of the head and neck which was negative. She also had a CT of the abdomen pelvis done which showed colitis for which a differential could be infectious, ischemic or inflammatory. She had a creatinine of 4.0. At baseline her creatinine is about 1.1. The patient has been using Advil fairly regularly lately. She is also on Lasix and an KATHERINE inhibitor. At the time of presentation her systolic blood pressure was in the 90s. At bedside she is resting comfortably she reports lower abdominal/suprapubic discomfort. She denies chest pain, dyspnea, nausea, vomiting or fever. She reports chills. She was presented for admission for further treatment. History - Past Medical History Cardiovascular: reports: Hypertension, High cholesterol Respiratory: reports: None Neuro: reports: None Endocrine/Autoimmune: reports: Type 2 diabetes GI: reports: None [employer]: reports: None : reports: None HEENT: reports: None Psych: reports: None Musculoskeletal: reports: None Derm: reports: None MRSA Hx?: No Other Past Medical History: Diabetic neuropathy, urinary incontinence, insomnia, chronic back pain. - Past Surgical History /[employer]: reports: Other (Uterine Cyst) - Family & Social History Family History Comment/Other: Her father 2 years ago at age 98 of old age. Her mother is alive and currently 98 years old. Living arrangement: At home Living Situation: Alone (son lives nearby) Social History Notes: She lives at home with her son. She does not smoke tobacco products. She quit smoking in 1967. She does not consume alcohol or use recreational substances. She gets around using a walker. - POLST Patient has POLST: No POLST Status: DNR Meds/Allgy - Home Medications Home Medications: Ambulatory Orders Medication Instructions Recorded Confirmed Aspirin [Aspirin EC] 81 mg PO DAILY 08/05/19 08/17/19 Cholecalciferol [Vitamin D3] 5,000 unit PO DAILY 08/05/19 08/17/19 Dulaglutide [Trulicity] 1.5 mg SQ OAW 08/05/19 08/17/19 Felodipine [Felodipine ER] 10 mg PO DAILY 08/05/19 08/17/19 Furosemide 40 mg PO DAILY 08/05/19 08/17/19 Insulin Glargine,Hum.rec.anlog 90 - 100 unit SUBQ DAILY 08/05/19 08/17/19 [Toujeo Solostar] Oxycodone HCl/Acetaminophen 1 each PO DAILY 08/05/19 08/17/19 [Oxycodone-Acetaminophen 10-325] Potassium Chloride [Klor-Con 10] 10 meq PO DAILY 08/05/19 08/17/19 Quinapril HCl 40 mg PO DAILY 08/05/19 08/17/19 Simvastatin 10 mg PO QPM 08/05/19 08/17/19 allopurinoL [Zyloprim] 300 mg PO DAILY 08/05/19 08/17/19 metFORMIN [Glucophage] 500 mg PO QDBREAKFAST 08/05/19 08/17/19 traZODone [Desyrel] 50 - 100 mg PO HS PRN 08/05/19 08/17/19 Ibuprofen [Advil] 4 mg PO PRN 08/17/19 Gabapentin BID 02/01/20 Tolterodine [Detrol LA] 02/01/20 - Allergies Allergies/Adverse Reactions: Allergies Allergy/AdvReac Type Severity Reaction Status Date / Time Penicillins Allergy Rash Verified 05/25/21 07:12 Review of Systems - Constitutional Constitutional: reports: Fatigue, Chills, Weakness. denies: Fever - Eyes Eyes: denies: Pain, Vision loss, Dipolpia - Ears, Nose & Throat Ears, Nose & Throat: denies: Ear pain, Sore throat - Cardiovascular Cariovascular: denies: Irregular heart rate, Palpitations, Chest pain, Edema, Lightheadedness, Syncope - Respiratory Respiratory: denies: Cough, Wheezing, SOB at rest, SOB with exertion - Gastrointestinal Gastrointestinal: reports: Abdominal pain, Constipation, Other (hemorrhoids). denies: Abdominal distention, Diarrhea, Nausea, Vomiting - Genitourinary Genitourinary: reports: Incontinence. denies: Dysuria, Hematuria - Musculoskeletal Musculoskeletal: reports: Back pain (chronic). denies: Muscle pain - Integumentary Integumentary: denies: Rash, Pruritis, Lesions - Neurological Neurological: reports: General weakness. denies: Focal weakness, Headache, Dizziness - Psychiatric Psychiatric: denies: Depression, Anxiety - Endocrine Endocrine: denies: Polyuria, Polydypsia - Hematologic/Lymphatic Hematologic/Lymphatic: denies: Anemia, Bruising Prior Level of Functionality: Patient lives with her son who helps with things like getting groceries and preparing meals. She is able to take care of personal cares. She gets around using a walker. Exam - Vital Signs Vital Signs: Vital Signs x48h Temp Pulse Resp BP Pulse Ox 05/25/21 11:00 93 21 102/56 L 92 05/25/21 09:09 97 17 128/57 L 90 L 05/25/21 07:14 37.2 C 106 H 20 97/64 94 - Physical Exam General Appearance: positive: No acute distress, Alert Eyes Bilateral: positive: PERRL, EOMI ENT: positive: Dry mucous membranes Neck: positive: No JVD, Trachea midline Respiratory: positive: Chest non-tender, No respiratory distress, Breath sounds nml. negative: Wheezes, Rales, Rhonchi Cardiovascular: positive: Regular rate & rhythm, No murmur Abdomen: positive: No distention, Tenderness (mild). negative: Guarding, Rebound Rectal: positive: Hemorrhoid Back: positive: Nml inspection Skin: positive: Color nml, No rash, Warm, Dry Extremities: positive: Non-tender, Full ROM, Nml appearance, No pedal edema Neurologic/Psychiatric: positive: Oriented x3, Mood/affect nml Conclusion/Plan - Problem List (1) Colitis Conclusion/Plan: Etiology undetermined. Differential includes infectious versus ischemic versus inflammatory. White blood cell count was 17.7. Patient made n.p.o. IV hydration with normal saline at 150 mL/h after 1L bolus. Blood cultures drawn. Patient started empirically on Cipro and Flagyl IV. (2) ALAN (acute kidney injury) Conclusion/Plan: Is secondary to dehydration and/all medication. Creatinine at presentation was 4.0. Baseline creatinine is 1.1. Patient systolic blood pressure at presentation was 97. She has also been taking Advil for pain. She also has Lasix and add KATHERINE inhibitor on her medication list. We will hold any potential nephrotoxic medications. Patient given 1 L bolus of normal saline. After which IV hydration was continued with normal saline at 150 mL/h (3) Diabetes mellitus Conclusion/Plan: Patient reports taking Lantus 120 units daily. Will resume Lantus after verification by pharmacy at half the dose given patient is currently n.p.o. Hemoglobin A1c pending. Accu-Cheks before every 6 hours. Sliding scale insulin. We will hold patient's Metformin. Qualifiers: Diabetes mellitus type: type 2 (4) Hyperlipidemia Conclusion/Plan: On simvastatin 10 mg p.o. every afternoon (5) Insomnia Conclusion/Plan: Trazodone 50 mg p.o. nightly as needed (6) Chronic back pain Conclusion/Plan: [place] 10/325 1 tablet p.o. daily. - Lab Results Fish Bones: 05/25/21 07:57 05/25/21 07:57 Core Measures - Anticipated LOS I expect patient to be DC'd or transferred within 96 hours.: Yes - DVT/VTE - Prophylaxis VTE/DVT Device ordered at admit?: Yes
[2021-05-25] MEDS: BENZOCAINE/MENTHOL LOZENGE MM PRN ×3 (12:24→17:54)
[2021-05-25] MEDS: CIPROFLOXACIN 200 MG/100 ML 200 MG/100 ML BAG IV SCH ×2 (12:31→23:15)
[2021-05-25] MEDS: INSULIN REGULAR HUMAN 300 UNIT/3 ML VIAL SUBQ SCH ×2 (12:57→17:55)
[2021-05-25] MEDS: metroNIDAZOLE 500 MG/100 ML 500 MG/100 ML BAG IV SCH ×2 (13:48→20:36)
[2021-05-25] MEDS: SODIUM CHLORIDE FLUSH 0.9% 10 ML SYRINGE IVP SCH (17:23)
[2021-05-25] MEDS: SODIUM CHLORIDE 0.9% 1,000 ML IV SCH (18:02)
[2021-05-25] MEDS: INSULIN GLARGINE 300 UNIT/3 ML PEN SUBQ SCH (20:33)
[2021-05-25] MEDS: HYDROcod/ACETAM 10 MG/325 MG TABLET PO PRN (20:33)
[2021-05-25] MEDS: NYSTATIN POWDER 15 GM TOP SCH (20:36)
[2021-05-25] MEDS ORDERED: INSULIN GLARGINE 300 UNIT/3 ML PEN SUBQ SCH (21:00)
[2021-05-26] MEDS: SODIUM CHLORIDE 0.9% 1,000 ML IV SCH ×5 (02:17→23:44)
[2021-05-26] MEDS: INSULIN REGULAR HUMAN 300 UNIT/3 ML VIAL SUBQ SCH ×2 (02:18→05:56)
[2021-05-26] MEDS: SODIUM CHLORIDE FLUSH 0.9% 10 ML SYRINGE IVP SCH ×4 (02:18→23:44)
[2021-05-26] MEDS: metroNIDAZOLE 500 MG/100 ML 500 MG/100 ML BAG IV SCH ×3 (03:38→20:13)
[2021-05-26] MEDS: ACETAMINOPHEN 325 MG TABLET PO PRN ×2 (03:48→17:52)
[2021-05-26] MEDS: WITCH HAZEL/GLYCERIN 1 PAD TOP PRN (04:00)
[2021-05-26 06:33] LABS: BASOPHILS # (AUTO) 0.1 10^3/uL (0.0-0.1); BASOPHILS % (AUTO) 0.3 %; EOSINOPHILS # (AUTO) 0.3 10^3/uL (0.0-0.7); EOSINOPHILS % (AUTO) 1.8 %; HCT - HEMATOCRIT 40.2 % (37.0-47.0); HGB - HEMOGLOBIN 13.3 g/dL (12.0-16.0); LYMPHOCYTES # (AUTO) 1.6 10^3/uL (1.5-3.5); LYMPHOCYTES % (AUTO) 10.9 %; MEAN CORPUSCULAR HEMOGLOBIN 29.1 pg (27.0-31.0); MEAN CORPUSCULAR HGB CONC 33.1 g/dL (32.0-36.0); MEAN PLATELET VOLUME 11.7 fL (7.9-10.8); MONOCYTES # (AUTO) 1.1 10^3/uL (0.0-1.0); MONOCYTES % (AUTO) 7.1 %; NEUTROPHILS # (AUTO) 11.8 10^3/uL (1.5-6.6); NEUTROPHILS % (AUTO) 79.4 %; PLT - PLATELET COUNT 213 10^3/uL (130-450); RED BLOOD COUNT 4.57 10^6/uL (4.20-5.40); RED CELL DISTRIBUTION WIDTH 15.2 % (12.0-15.0); WHITE BLOOD COUNT 14.8 x10^3/uL (4.8-10.8)
[2021-05-26 06:43] LABS: CALCIUM 8.4 mg/dL (8.5-10.3); CREATININE 2.2 mg/dL (0.4-1.0); POTASSIUM 3.3 mmol/L (3.5-5.0)
--- NOTE | 2021-05-26 07:54 | PROVIDER PROGRESS NOTE ---
Assessment/Plan - Problem List (1) Colitis Assessment/Plan: Blood cultures are no growth to date. On IV hydration with normal saline at 100 mL/h. On Cipro and Flagyl IV. White blood cell count improved from 17.7 down to 14.8. Patient is afebrile. If patient continues to improve and tolerates a diet as advance will consider discharge on 05/27/2021. (2) ALAN (acute kidney injury) Assessment/Plan: Improving. Thought to be secondary to dehydration and/or medication. Creatinine at presentation was 4.0. Baseline creatinine is 1.1. Creatinine today 05/26/21 is 2.2 Continue to hold all nephrotoxic medications. Continue IV hydration with normal saline at 100 mL/h. (3) Diabetes mellitus Qualifiers: Diabetes mellitus type: type 2 Assessment/Plan: Poorly controlled. Patient's hemoglobin A1c was 10.9. At home patient is on Trulicity, Toujeo and Metformin Patient was placed on Lantus 60 units subcu nightly while n.p.o. We will adjust Lantus dose accordingly with advancing diet. Currently on clear liquid diet. Will advance diet as tolerated. Accu-Cheks every 6 hours. Sliding scale insulin. We will order diabetic education. (4) Hyperlipidemia Assessment/Plan: On simvastatin 10 mg p.o. every afternoon (5) Insomnia Assessment/Plan: Trazodone 50 mg p.o. nightly as needed (6) Chronic back pain Assessment/Plan: Devers 10/325 q12hrs prn - Current Meds Current Meds: Current Medications Generic Name Dose Route Start Last Admin Trade Name Freq PRN Reason Stop Dose Admin Acetaminophen 650 mg 05/25/21 11:24 05/26/21 03:48 Acetaminophen 325 Mg Tablet PO 650 mg Q6H PRN Administration Pain or Fever > 38C (100.4F) Hydrocodone Bitart/Acetaminophen 1 tab 05/25/21 14:06 05/25/21 20:33 Hydrocod/Acetam 10 Mg/325 Mg Tablet PO 1 tab Q12H PRN Administration PAIN Sodium Chloride 1,000 mls @ 150 mls/hr 05/25/21 12:00 05/26/21 02:17 Normal Saline 0.9% IV 150 mls/hr .Q6H40M MICHELLE Administration Ciprofloxacin 200 mg in 100 mls @ 100 mls/hr 05/25/21 12:00 05/26/21 00:36 Cipro 200 Mg/100 Ml IV Infused Q12H MICHELLE Infusion Metronidazole 500 mg in 100 mls @ 100 mls/hr 05/25/21 12:00 05/26/21 04:42 Flagyl 500 Mg/100 Ml IV Infused Q8H MICHELLE Infusion Insulin Glargine 60 unit 05/25/21 21:00 05/25/21 20:33 Insulin Glargine 300 Unit/3 Ml Pen SUBQ 60 unit QPM MICHELLE Administration Insulin Human Regular 1 - 9 unit 05/25/21 12:00 05/26/21 05:56 Insulin Regular Human 300 Unit/3 Ml Vial SUBQ Not Given Q6HR [facility] Protocol Nystatin 1 applic 05/25/21 21:00 05/25/21 20:36 Nystatin Powder 15 Gm TOP 1 applic BID MICHELLE Administration Sodium Chloride 10 ml 05/25/21 17:00 05/26/21 02:18 Sodium Chloride Flush 0.9% 10 Ml Syringe IVP Not Given 0100,0900,1700 [facility] Throat Lozenges 1 lozenge 05/25/21 12:16 05/25/21 17:54 Benzocaine/Menthol Lozenge MM 1 lozenge Q2HR PRN Administration Throat pain Witch Dilcia/Glycerin 1 pad 05/26/21 03:33 05/26/21 04:00 Witch Dilcia/Glycerin 1 Pad TOP 1 pad PRN PRN Administration ITCHING - Lab Result Fish Bone Diagrams: 05/26/21 06:05 05/26/21 06:05 - Additional Planning My Orders: My Active Orders 05/25/21 11:16 Activity Orders [RC] Q2HR IO [RC] IOSHIFT Initiate Bowel Care Protocol [RC] .protocol Initiate Line Care Protocol [RC] QSHIFT Initiate Personal Care Protoco [RC] .protocol Oxygen Therapy [RC] .PRN Telemetry- [RC] Q4HR Vital Signs [RC] 0800,1600,0000 Ondansetron Inj [Zofran Inj] 4 mg IVP Q6HR PRN Sodium Chloride Flush 0.9% [Normal Saline Flush 0.9%] 10 ml IVP PRN PRN Condition of Patient [OTHERS] Routine DVT Prophylaxis [OTHERS] Routine 05/25/21 11:19 SCDs [RC] QSHIFT 05/25/21 11:24 Acetaminophen [Tylenol] 650 mg PO Q6H PRN 05/25/21 11:29 Blood Glucose POC [] 0000,0600,1200,1800 Initiate Hypoglycemia Protocol [RC] .protocol 05/25/21 11:36 CULTURE, BLOOD #1 [RM] Stat 05/25/21 11:39 CULTURE, BLOOD #2 [RM] Stat 05/25/21 12:00 Ciprofloxacin 200 mg/100 ml [Cipro 200 mg/100 ml] 200 mg in 100 ml IV Q12H Insulin Regular Human [Humulin R] 1 - 9 unit SUBQ Q6HR Sodium Chloride 0.9% [Normal Saline 0.9%] 1,000 ml IV 150 mls/hr metroNIDAZOLE 500 MG/100 ML [Flagyl 500 mg/100 ml] 500 mg in 100 ml IV Q8H 05/25/21 12:16 Benzocaine/Menthol [Cepacol] 1 lozenge MM Q2HR PRN 05/25/21 13:37 Code Status [OTHERS] Routine 05/25/21 14:06 HYDROcodone/ACET 10/325 [Devers 10 mg/325 mg] 1 tab PO Q12H PRN 05/25/21 17:00 Sodium Chloride Flush 0.9% [Normal Saline Flush 0.9%] 10 ml IVP 0100,0900,1700 05/25/21 21:00 Insulin Glargine [Lantus Solostar] 60 unit SUBQ QPM Nystatin [Nystop] 1 applic TOP BID 05/26/21 Breakfast Clear Liquid Diet [DIET] 05/26/21 06:05 HEMOGLOBIN A1c% [CHEM] DAILYLAB 05/26/21 Lunch Full Liquid Diet [DIET] 05/27/21 05:00 BMP - BASIC METABOLIC PANEL [CHEM] DAILYLAB CBC - COMP BLD CT W/AUTO DIFF [HEME] DAILYLAB 05/28/21 05:00 BMP - BASIC METABOLIC PANEL [CHEM] DAILYLAB CBC - COMP BLD CT W/AUTO DIFF [HEME] DAILYLAB 05/29/21 05:00 BMP - BASIC METABOLIC PANEL [CHEM] DAILYLAB CBC - COMP BLD CT W/AUTO DIFF [HEME] DAILYLAB 05/30/21 05:00 BMP - BASIC METABOLIC PANEL [CHEM] DAILYLAB CBC - COMP BLD CT W/AUTO DIFF [HEME] DAILYLAB 05/31/21 05:00 BMP - BASIC METABOLIC PANEL [CHEM] DAILYLAB CBC - COMP BLD CT W/AUTO DIFF [HEME] DAILYLAB 06/01/21 05:00 BMP - BASIC METABOLIC PANEL [CHEM] DAILYLAB CBC - COMP BLD CT W/AUTO DIFF [HEME] DAILYLAB Subjective - Subjective Patient Reports: Other (Laying in bed at time of exam. She complained of back pain which she attributed to the bed. She reported mild lower abdominal pain today. She reports having a bowel movement today which was unremarkable. She denies any other complaints.) Objective Vital Signs: Vital Signs - 24 hr 05/25/21 05/25/21 05/25/21 09:09 11:00 12:10 Temperature Heart Rate 97 93 Heart Rate [ 100 Brachial] Respiratory 17 21 20 Rate Blood Pressure 128/57 L 102/56 L Blood Pressure 121/73 [Right Brachial artery] O2 Saturation 90 L 92 94 05/25/21 05/25/21 05/25/21 14:06 15:45 20:19 Temperature 36.5 C 37.0 C Heart Rate 73 Heart Rate [ 91 103 H Brachial] Respiratory 16 18 18 Rate Blood Pressure Blood Pressure 114/66 145/68 H [Right Brachial artery] O2 Saturation 93 93 94 05/25/21 05/26/21 23:14 03:40 Temperature 37 C 36.7 C Heart Rate Heart Rate [ 97 105 H Brachial] Respiratory 20 18 Rate Blood Pressure Blood Pressure 119/54 L 128/62 [Right Brachial artery] O2 Saturation 95 95 Oxygen O2 Source Room air I&O (Last 24 Hrs): Intake and Output Totals x24h 05/24/21 05/25/21 05/26/21 23:59 23:59 23:59 Intake Total 2154.5 1200 Balance 2154.5 1200 General: Alert, Oriented x3, No acute distress HEENT: PERRLA, EOMI Neck: Supple, No JVD Neuro: Alert, Non Focal, Oriented Times 3 Cardiovascular: Regular rate, Normal S1, Normal S2 Respiratory: Chest non-tender, No respiratory distress, Breath sounds nml Abdomen: Normal bowel sounds, Soft, No tenderness Extremities: No clubbing, No cyanosis, No edema Skin: No rashes, No breakdown, No significant lesion - Results Results: Laboratory Results WBC 14.8 x10^3/uL (4.8-10.8) H 05/26/21 06:05 RBC 4.57 10^6/uL (4.20-5.40) 05/26/21 06:05 Hgb 13.3 g/dL (12.0-16.0) 05/26/21 06:05 Hct 40.2 % (37.0-47.0) 05/26/21 06:05 MCV 88.0 fL (81.0-99.0) 05/26/21 06:05 MCH 29.1 pg (27.0-31.0) 05/26/21 06:05 MCHC 33.1 g/dL (32.0-36.0) 05/26/21 06:05 RDW 15.2 % (12.0-15.0) H 05/26/21 06:05 Plt Count 213 10^3/uL (130-450) 05/26/21 06:05 MPV 11.7 fL (7.9-10.8) H 05/26/21 06:05 Neut # (Auto) 11.8 10^3/uL (1.5-6.6) H 05/26/21 06:05 Lymph # (Auto) 1.6 10^3/uL (1.5-3.5) 05/26/21 06:05 Ralls # (Auto) 1.1 10^3/uL (0.0-1.0) H 05/26/21 06:05 Eos # (Auto) 0.3 10^3/uL (0.0-0.7) 05/26/21 06:05 Baso # (Auto) 0.1 10^3/uL (0.0-0.1) 05/26/21 06:05 Absolute Nucleated RBC 0.00 x10^3/uL 05/26/21 06:05 Nucleated RBC % 0.0 /100WBC 05/26/21 06:05 Sodium 135 mmol/L (135-145) 05/26/21 06:05 Potassium 3.3 mmol/L (3.5-5.0) L 05/26/21 06:05 Chloride 103 mmol/L (101-111) 05/26/21 06:05 Carbon Dioxide 22 mmol/L (21-32) 05/26/21 06:05 Anion Gap 10.0 (6-13) 05/26/21 06:05 BUN 84 mg/dL (6-20) H* 05/26/21 06:05 Creatinine 2.2 mg/dL (0.4-1.0) H 05/26/21 06:05 Estimated GFR (MDRD) 22 (>89) L 05/26/21 06:05 Glucose 113 mg/dL (70-100) H 05/26/21 06:05 POC Whole Bld Glucose 121 mg/dL (70 - 100) H 05/26/21 05:26 Lactic Acid 1.1 mmol/L (0.5-2.2) 05/25/21 11:36 Calcium 8.4 mg/dL (8.5-10.3) L 05/26/21 06:05 Magnesium 1.9 mg/dL (1.7-2.8) 05/25/21 07:57 Total Bilirubin 1.8 mg/dL (0.2-1.0) H 05/25/21 07:57 AST 28 IU/L (10-42) 05/25/21 07:57 ALT 30 IU/L (10-60) 05/25/21 07:57 Alkaline Phosphatase 95 IU/L (42-121) 05/25/21 07:57 Total Protein 6.5 g/dL (6.7-8.2) L 05/25/21 07:57 Albumin 3.6 g/dL (3.2-5.5) 05/25/21 07:57 Globulin 2.9 g/dL (2.1-4.2) 05/25/21 07:57 Albumin/Globulin Ratio 1.2 (1.0-2.2) 05/25/21 07:57 Lipase 29 U/L (22-51) 05/25/21 07:57 Urine Color YELLOW 05/25/21 09:20 Urine Clarity CLEAR (CLEAR) 05/25/21 09:20 Urine pH 5.5 PH (5.0-7.5) 05/25/21 09:20 Ur Specific [place] 1.020 (1.002-1.030) 05/25/21 09:20 Urine Protein NEGATIVE mg/dL (NEGATIVE) 05/25/21 09:20 Urine Glucose (UA) NEGATIVE mg/dL (NEGATIVE) 05/25/21 09:20 Urine Ketones NEGATIVE mg/dL (NEGATIVE) 05/25/21 09:20 Urine Occult Blood NEGATIVE (NEGATIVE) 05/25/21 09:20 Urine Nitrite NEGATIVE (NEGATIVE) 05/25/21 09:20 Urine Bilirubin NEGATIVE (NEGATIVE) 05/25/21 09:20 Urine Urobilinogen 0.2 (NORMAL) E.U./dL (NORMAL) 05/25/21 09:20 Ur Leukocyte Esterase NEGATIVE (NEGATIVE) 05/25/21 09:20 Ur Microscopic Review NOT INDICATED 05/25/21 09:20 Urine Culture Comments NOT INDICATED 05/25/21 09:20 Nasal Adenovirus (PCR) NOT DETECTED 05/25/21 08:55 Nasal B. parapertussis DNA (PCR) NOT DETECTED 05/25/21 08:55 Nasal Coronavir 229E PCR NOT DETECTED 05/25/21 08:55 Nasal Coronavir HKU1 PCR NOT DETECTED 05/25/21 08:55 Nasal Coronavir NL63 PCR NOT DETECTED 05/25/21 08:55 Nasal Coronavir OC43 PCR NOT DETECTED 05/25/21 08:55 Nasal Enterovir/Rhinovir PCR NOT DETECTED 05/25/21 08:55 Nasal Influenza B PCR NOT DETECTED 05/25/21 08:55 Nasal Influenza A PCR NOT DETECTED 05/25/21 08:55 Nasal Parainfluen 1 PCR NOT DETECTED 05/25/21 08:55 Nasal Parainfluen 2 PCR NOT DETECTED 05/25/21 08:55 Nasal Parainfluen 3 PCR NOT DETECTED 05/25/21 08:55 Nasal Parainfluen 4 PCR NOT DETECTED 05/25/21 08:55 Nasal RSV (PCR) NOT DETECTED 05/25/21 08:55 Nasal B.pertussis DNA PCR NOT DETECTED 05/25/21 08:55 Nasal C.pneumoniae (PCR) NOT DETECTED 05/25/21 08:55 Percy Human Metapneumo PCR NOT DETECTED 05/25/21 08:55 Nasal M.pneumoniae (PCR) NOT DETECTED 05/25/21 08:55 Nasal SARS-CoV-2 (PCR) NOT DETECTED 05/25/21 08:55 - Procedures Procedures: Procedures EXCISION OF CERVIX, ENDO (08/17/19) EXCISION OF UTERUS, ENDO (08/17/19) ABX Reporting Has patient been on IV antibiotics over the past 48 hours?: Yes
[2021-05-26] MEDS: BENZOCAINE/MENTHOL LOZENGE MM PRN (07:55)
[2021-05-26 08:48] LABS: ESTIMATED AVERAGE GLUCOSE 266 mg/dL (70-100); HEMOGLOBIN A1c% 10.9 % (4.27-6.07)
[2021-05-26] MEDS: INSULIN ASPART 300 UNIT/3 ML PEN SUBQ SCH ×4 (09:13→21:06)
[2021-05-26] MEDS: NYSTATIN POWDER 15 GM TOP SCH ×2 (09:50→21:04)
[2021-05-26] MEDS: HYDROcod/ACETAM 10 MG/325 MG TABLET PO PRN ×2 (11:37→23:44)
[2021-05-26] MEDS: CIPROFLOXACIN 200 MG/100 ML 200 MG/100 ML BAG IV SCH ×2 (11:42→23:43)
[2021-05-26] MEDS: INSULIN GLARGINE 300 UNIT/3 ML PEN SUBQ SCH (21:35)
[2021-05-27] MEDS: metroNIDAZOLE 500 MG/100 ML 500 MG/100 ML BAG IV SCH ×2 (03:26→12:56)
[2021-05-27 05:50] LABS: BASOPHILS # (AUTO) 0.1 10^3/uL (0.0-0.1); BASOPHILS % (AUTO) 0.4 %; EOSINOPHILS # (AUTO) 0.2 10^3/uL (0.0-0.7); EOSINOPHILS % (AUTO) 1.5 %; HCT - HEMATOCRIT 42.9 % (37.0-47.0); LYMPHOCYTES # (AUTO) 2.2 10^3/uL (1.5-3.5); MEAN CORPUSCULAR HEMOGLOBIN 28.8 pg (27.0-31.0); MEAN CORPUSCULAR HGB CONC 32.6 g/dL (32.0-36.0); MEAN CORPUSCULAR VOLUME 88.3 fL (81.0-99.0); MEAN PLATELET VOLUME 11.7 fL (7.9-10.8); MONOCYTES # (AUTO) 0.8 10^3/uL (0.0-1.0); MONOCYTES % (AUTO) 6.1 %; NEUTROPHILS # (AUTO) 10.3 10^3/uL (1.5-6.6); NEUTROPHILS % (AUTO) 75.3 %; PLT - PLATELET COUNT 238 10^3/uL (130-450); RED BLOOD COUNT 4.86 10^6/uL (4.20-5.40); RED CELL DISTRIBUTION WIDTH 15.4 % (12.0-15.0); WHITE BLOOD COUNT 13.7 x10^3/uL (4.8-10.8)
[2021-05-27 05:56] LABS: CALCIUM 8.9 mg/dL (8.5-10.3); CREATININE 1.3 mg/dL (0.4-1.0); POTASSIUM 3.7 mmol/L (3.5-5.0)
[2021-05-27] MEDS: INSULIN ASPART 300 UNIT/3 ML PEN SUBQ SCH (08:03)
[2021-05-27] MEDS: SODIUM CHLORIDE FLUSH 0.9% 10 ML SYRINGE IVP SCH (08:04)
[2021-05-27] MEDS: NYSTATIN POWDER 15 GM TOP SCH (08:04)
--- NOTE | 2021-05-27 08:04 | DISCHARGE SUMMARY ---
Discharge Summary Admit Date: 05/25/21 Discharge Date: 05/27/21 Discharging Provider: Randy Blanton Primary Care Provider: Matheus Gillespie Code Status: Do Not Attempt Resuscitation Condition at Discharge: Stable Discharge Disposition: 01 Home, Self Care - DIAGNOSES Admission Diagnoses: Colitis Acute kidney injury Diabetes mellitus Hyperlipidemia Insomnia Chronic back pain Discharge Diagnoses with Status of Each Condition: Colitis: Acute. Suspect infectious. Patient was treated with Cipro and Flagyl IV for 3 days. Discharged with a prescription of Cipro and Flagyl p.o. for 5 more days Acute kidney injury: Likely pre-renal from hypovolemia related to dehydration. With IV hydration patient's creatinine improved from 4.0 down to 1.3. Baseline creatinine is 1.1. She was advised to avoid NSAIDs. Diabetes mellitus: Chronic. Poorly controlled. A1c is 10.9. Patient is on Trulicity and Toujeo at home. Diabetic education referral for the [facility] clinic has been placed. Patient will also need to follow-up with her primary care physician Dr. Matheus Gillespie for further management. Hyperlipidemia: Chronic. Continue home medication. Insomnia: Chronic. Continue home medication Chronic back pain: Chronic. Continue home medication - HPI History of Present Illness: Patient is a 76-year-old female with medical history significant for diabetes mellitus type 2 on insulin, hypertension, gout, hyperlipidemia, diabetic neuropathy not, urinary incontinence, insomnia and chronic back pain who presented to the ED after a fall at home. She was trying to go to the bathroom and slipped and fell due to weakness she hit her head and neck but did not pass out. She reports she has been weak for the past 1 week. She reports chronic urinary incontinence. Today after going to the bathroom and having a bowel movement she noted bright red blood on the toilet paper when she cleaned up her self. She reports history of hemorrhoids. This was also confirmed by the ED physician to be present. Work-up in the ED included a CT of the head and neck which was negative. She also had a CT of the abdomen pelvis done which showed colitis for which a differential could be infectious, ischemic or inflammatory. She had a creatinine of 4.0. At baseline her creatinine is about 1.1. The patient has been using Advil fairly regularly lately. She is also on Lasix and an KATHERINE inhibitor. At the time of presentation her systolic blood pressure was in the 90s. At bedside she is resting comfortably she reports lower abdominal/suprapubic discomfort. She denies chest pain, dyspnea, nausea, vomiting or fever. She reports chills. She was presented for admission for further treatment. - HOSPITAL COURSE Hospital Course: Patient was admitted and started on IV hydration with normal saline. Over the cause of her 3-day hospital stay creatinine improved from 4.0 down to 1.3 by the day of discharge. Her baseline creatinine is 1.0. Admission her white blood cell count was 17.7. By discharge the white blood cell count was 13.7. She was treated with Cipro and Flagyl IV through the course of her hospital stay. Upon discharge she was prescribed Cipro to 50 mg p.o. twice daily x5 days and Flagyl 500 mg p.o. 3 times daily x5 days. Blood cultures were no growth to date x3 days by the day of discharge. Her hemoglobin A1c was 10.9. The patient is on Toujeo and Trulicity at home. Diabetic education referral was placed for the [facility] clinic. The patient is also to follow-up with her primary care physician Dr. Gillespie for further management. She was discharged in stable condition. - ALLERGIES Allergies/Adverse Reactions: Allergies Allergy/AdvReac Type Severity Reaction Status Date / Time Penicillins Allergy Rash Verified 05/25/21 07:12 - MEDICATIONS Home Medications: Ambulatory Orders Medication Instructions Recorded Confirmed Aspirin [Aspirin EC] 81 mg PO DAILY 08/05/19 05/26/21 Cholecalciferol [Vitamin D3] 5,000 unit PO DAILY 08/05/19 05/26/21 Dulaglutide [Trulicity] 1.5 mg SQ OAW 08/05/19 05/26/21 Felodipine [Felodipine ER] 10 mg PO DAILY 08/05/19 05/26/21 Furosemide 40 mg PO DAILY 08/05/19 05/26/21 Insulin Glargine,Hum.rec.anlog 90 - 100 unit SUBQ DAILY 08/05/19 08/17/19 [Toujeo Solostar] Oxycodone HCl/Acetaminophen 1 each PO DAILY PRN 08/05/19 05/26/21 [Oxycodone-Acetaminophen 10-325] Potassium Chloride [Klor-Con 10] 10 meq PO DAILY 08/05/19 05/26/21 Quinapril HCl 40 mg PO DAILY 08/05/19 05/26/21 Simvastatin 20 mg PO QPM 08/05/19 05/26/21 allopurinoL [Zyloprim] 300 mg PO DAILY 08/05/19 05/26/21 metFORMIN [Glucophage] 500 mg PO QDBREAKFAST 08/05/19 05/26/21 traZODone [Desyrel] 50 - 100 mg PO HS PRN 08/05/19 05/26/21 Gabapentin 600 mg PO BID 02/01/20 05/26/21 Tolterodine [Detrol LA] 4 mg PO DAILY 02/01/20 05/26/21 Duloxetine HCl [Cymbalta] 20 mg PO DAILY 05/26/21 05/26/21 Ciprofloxacin [Cipro] 250 mg PO Q12H 5 Days #10 tablet 05/27/21 metroNIDAZOLE [Flagyl] 500 mg PO TID 5 Days #15 tablet 05/27/21 - PHYSICAL EXAM AT DISCHARGE General Appearance: positive: No acute distress, Alert Eyes Bilateral: positive: PERRL, EOMI ENT: positive: No signs of dehydration Neck: positive: No JVD, Trachea midline Respiratory: positive: Chest non-tender, No respiratory distress, Breath sounds nml. negative: Wheezes, Rales, Rhonchi Cardiovascular: positive: Regular rate & rhythm, No murmur Abdomen: positive: Non-tender, No organomegaly, Nml bowel sounds, No distention. negative: Guarding, Rebound Back: positive: Nml inspection Skin: positive: Color nml, No rash, Warm, Dry Extremities: positive: Non-tender, Nml appearance Neurologic/Psychiatric: positive: Oriented x3, Mood/affect nml - LABS Result Diagrams: 05/27/21 05:30 05/27/21 05:30 - TIME SPENT Time Spent in Discharge (Minutes): 20
--- NOTE | 2021-05-27 08:04 | Discharge Plan ---
Discharge Plan Problem Reviewed?: Yes Disposition: Home, Self Care Condition: Stable Prescriptions: Ciprofloxacin [Cipro] 250 mg PO Q12H 5 Days #10 tablet metroNIDAZOLE [Flagyl] 500 mg PO TID 5 Days #15 tablet Diet: Diabetic Activity Restrictions: Activity as Tolerated Assistance Devices: [facility] Concerns: You were admitted on 05/25/2021 after mechanical fall due to weakness. When you presented to ER blood pressure was low and your creatinine was noted to be 4.0. Normally at baseline your creatinine is about 1.1. This findings were due to the fact that you were dehydrated. You were given IV hydration over the course of your hospital stay and by the day of discharge your creatinine was 1.3. He also had a CT scan of the abdomen pelvis done which showed that you had colitis. You were placed on IV antibiotics of Cipro and Flagyl. By the day of discharge your white blood cell count which was 17 had improved down to 13.2. You are being discharged in stable condition. You will be prescribed Cipro and Flagyl to take for 5 more days. Your hemoglobin A1c which is a 3-month average of your blood sugar was also checked and noticed to be 10.9. An outpatient referral for diabetic education has been placed upon this discharge. You are to follow-up with your primary care physician within 7 to 10 days or as needed. You are being discharged in stable condition. The above plan was discussed with you you expressed understanding and are agreeable to the plan. Follow-Up Care: [facility] - Diabetes Ed No Smoking: If you smoke, Please STOP! Call for help. Follow-up with: ANTONINO ALCAZAR MD [Primary Care Provider] -
[2021-05-27 08:14] VITALS: BP 177/82
[2021-05-27] MEDS: HYDROcod/ACETAM 10 MG/325 MG TABLET PO PRN (08:23)
[2021-05-27] MEDS: SODIUM CHLORIDE 0.9% 1,000 ML IV SCH (11:44)
[2021-05-27] MEDS: CIPROFLOXACIN 200 MG/100 ML 200 MG/100 ML BAG IV SCH (11:45)
[2021-05-27] MEDS ORDERED: INSULIN ASPART 300 UNIT/3 ML PEN SUBQ SCH (12:00)
[2021-05-27] MEDS: WITCH HAZEL/GLYCERIN 1 PAD TOP PRN (12:02)
--- NOTE | 2021-05-27 14:12 | PHARMACY PROGRESS NOTE ---
- Best Possible Medication History Admit Date and Time: 05/25/21 1116 Processed by: Pharmacy Medication History completed: Yes Patient Interview: Completed Secondary Source(s): Physician records, Pharmacy records, Insurance records As the person ultimately responsible for medication therapy, providers are able to order a medication from an existing home medication list in [facility] via the "Reconcile Routine" prior to Confirmation of that medication by technical support coordinator. Such practice is discouraged except when the physician, in their clinical judgment, deems that a medical need exists for a medication without regard to previous use.
== END 2021-05-27 14:45 | disposition home or self-care (01) | DRG 683 ==
LOC: ED 06:58 → MS2 11:16
PROVIDERS: ADMIT Internal Medicine; ATTEND Internal Medicine
DX: N17.9 Acute kidney failure, unspecified (principal); M54.2 Cervicalgia; W01.0XXA Fall on same level from slipping, tripping and stumbling without subsequent striking against object, initial encounter; Y92.009 Unspecified place in unspecified non-institutional (private) residence as the place of occurrence of the external cause; K52.89 Other specified noninfective gastroenteritis and colitis; K64.4 Residual hemorrhoidal skin tags; A09 Infectious gastroenteritis and colitis, unspecified; I10 Essential (primary) hypertension; E11.9 Type 2 diabetes mellitus without complications; Z20.822 Contact with and (suspected) exposure to COVID-19; E11.40 Type 2 diabetes mellitus with diabetic neuropathy, unspecified; E11.65 Type 2 diabetes mellitus with hyperglycemia; E86.0 Dehydration; E86.1 Hypovolemia; G47.00 Insomnia, unspecified; G89.29 Other chronic pain; M10.9 Gout, unspecified; M54.9 Dorsalgia, unspecified; E78.00 Pure hypercholesterolemia, unspecified; R32 Unspecified urinary incontinence; Z79.4 Long term (current) use of insulin; Z79.82 Long term (current) use of aspirin; Z79.84 Long term (current) use of oral hypoglycemic drugs; Z79.899 Other long term (current) drug therapy; Z87.891 Personal history of nicotine dependence; Z88.0 Allergy status to penicillin
CPT/HCPCS: 36415; 51701; 51798; 70450; 72125; 73030; 74176; 80048; 80053; 81003; 83036; 83605; 83690; 83735; 85025; 87040; 87631; 96374; 99284; 99285; A9270; J1815; 0202U; 81001; 87086

== ENCOUNTER 2021-08-12 10:14 | Outpatient (CLI) | payer MEDICARE, OTHER ==
[2021-08-12] MEDS ORDERED: ROPIVACAINE 0.5% PF 30 ML VIAL ONE (10:27)
[2021-08-12] MEDS ORDERED: lidocaine 1% 20 ML MDV ONE (10:27)
[2021-08-12] MEDS ORDERED: IOTHALAMATE MEGLUMINE 50 ML VIAL ONE (10:28)
[2021-08-12] MEDS ORDERED: TRIAMCINOLONE 40 MG/ML VIAL ONE (10:28)
[2021-08-12] MEDS ORDERED: TRIAMCINOLONE 40 MG/ML VIAL IM ONE (11:14)
[2021-08-12] MEDS ORDERED: IOTHALAMATE MEGLUMINE 50 ML VIAL IVP ONE (11:15)
[2021-08-12] MEDS ORDERED: lidocaine 1% 20 ML MDV SUBQ ONE (11:16)
[2021-08-12] MEDS ORDERED: ROPIVACAINE 0.5% PF 30 ML VIAL IU ONE (11:17)
--- NOTE | 2021-08-13 16:11 | XRAY Report ---
PROCEDURE: Inj/Aspiration Major Joint INDICATIONS: LEFT SHOULDER DJD TECHNIQUE: The indications, alternatives, benefits, risks, and complications of the procedure were explained to the patient. Written informed consent was obtained and placed in the chart. The patient was placed in an appropriate position on the fluoroscopy table, and a site was chosen for percutaneous access un aron fluoroscopic guidance. The site was prepped and draped in a sterile fashion. Local anesthetic w as administered using a 1% lidocaine solution. A hypodermic or spinal needle was then used to access the symptomatic joint. Intra-articular location of the needle tip was confirmed by injecting a smal l amount of contrast, followed by steroid administration. The needle was then withdrawn, and a rnedon ge applied to the puncture site. FINDINGS: Joint injected: Left shoulder Medications injected: 4 mL of 40 mg/mL Kenalog and 0.5% Ropivacaine mixture. Patient's pain before injection: 8 out of 10. Patient's pain after injection: 0 out of 10. Complications: None. IMPRESSION: Successful fluoroscopically guided administration of steroid and anaesthetic solution into the left s houlder joint. Reviewed by: Cathleen Shaw MD on 08/13/2021 4:10 PM PST Approved by: Cathleen Shaw MD on 08/13/2021 4:10 PM PST Station ID: [id number]
== END 2021-08-12 10:15 | disposition home or self-care (01) ==
LOC: DI 10:14
PROVIDERS: ATTEND Orthopaedic Surgery
DX: M19.012 Primary osteoarthritis, left shoulder (principal)
CPT/HCPCS: 20610; 77002; Q9961

== ENCOUNTER 2022-12-30 08:00 | Outpatient (CLI) | payer MEDICARE, OTHER ==
--- NOTE | 2022-12-30 19:33 | XRAY Report ---
PROCEDURE: Knee 3 View LT INDICATIONS: LEFT KNEE PAIN, SEVERE TECHNIQUE: 3 views of the left knee(s) were acquired. COMPARISON: None. FINDINGS: Bones: No fractures or dislocations. No suspicious bony lesions. Severe medial and mild lateral com partmental joint space narrowing with small marginal osteophytes present. Patellofemoral joint space narrowing and marginal osteophytes present as well. Moderate joint effusion Soft tissues: Moderate knee joint effusion. No suspicious soft tissue calcifications or masses. IMPRESSION: Moderate severe osteoarthritis with joint effusion Reviewed by: Donnie Morales MD on 12/30/2022 6:31 PM [facility] Approved by: Donnie Morales MD on 12/30/2022 6:31 PM WILFR[facility] Station ID: [id number]
== END 2022-12-30 23:59 | disposition home or self-care (01) ==
LOC: DI.S 08:00
PROVIDERS: ATTEND Emergency Medicine
DX: M17.12 Unilateral primary osteoarthritis, left knee (principal); M25.462 Effusion, left knee

== ENCOUNTER 2024-02-20 21:27 | Emergency (ER) | payer MEDICARE, OTHER ==
--- NOTE | 2024-02-20 22:00 | ED Physician Documentation ---
History of Present Illness - Stated complaint Stated Complaint: GI - Chief complaint Chief Complaint: Abd Pain - History obtained from History obtained from: Patient - Additonal information Additional information: 79-year-old woman presents with constipation for the past 3 days. She is to take MiraLAX but is not currently taking any stool regimen. Denies other complaints. PD PAST MEDICAL HISTORY - Past Medical History Cardiovascular: Hypertension Respiratory: None Neuro: None Endocrine/Autoimmune: Type 2 diabetes GI: None EXTERMINATION INSPECTOR: None : None HEENT: None Psych: None Musculoskeletal: None Derm: None - Past Surgical History Past Surgical History: No /EXTERMINATION INSPECTOR: Other HEENT: Cataracts - Present Medications Home Medications: Ambulatory Orders Medication Instructions Recorded Confirmed Aspirin [Aspirin Regimen] 81 mg PO DAILY 02/20/24 02/20/24 Hydrocortisone [Anusol-Hc] 30 gm RC QPM #30 gm 02/20/24 Insulin Glargine,Hum.rec.anlog 120 unit SUBQ DAILY 02/20/24 02/20/24 [Toujeo Solostar] Oxycodone HCl/Acetaminophen 1.5 tab PO DAILY PRN 02/20/24 02/20/24 [Percocet 10-325 mg Tablet] Sennosides/Docusate Sodium 1 each PO QPM #30 tab 02/20/24 [Senna-Docusate Sodium Tablet] Zolpidem Tartrate [Ambien] 10 mg PO HS 02/20/24 02/20/24 polyethylene glycoL 3350 [Miralax] 17 gm PO DAILY #15 packet 02/20/24 - Allergies Allergies/Adverse Reactions: Allergies Allergy/AdvReac Type Severity Reaction Status Date / Time Penicillins Allergy Rash Verified 02/20/24 21:43 - Social History Does the pt smoke?: No Smoking Status: Never smoker Does the pt drink ETOH?: No Does the pt have substance abuse?: No - Immunizations Immunizations are current?: Yes - POLST Patient has POLST: No POLST Status: DNR PD ED PE NORMAL - Vitals Vital signs reviewed: Yes - General General: Alert and oriented X 3, No acute distress, Well developed/nourished - HEENT HEENT: Atraumatic, PERRL, EOMI - Rectal Rectal: Other (Soft brown stool in the rectal vault. External hemorrhoids and palpable internal hemorrhoids) - Derm Derm: Normal color, Warm and dry Results - Vitals Vitals: Vital Signs - 24 hr 02/20/24 21:38 Temperature 36.9 C Heart Rate 1 L Respiratory 18 Rate Blood Pressure 132/84 H O2 Saturation 95 Oxygen O2 Source Room air PD Medical Decision Making - ED course ED course: 79-year-old woman presented with constipation for the past 3 days. Rectal disimpaction was performed to good effect. I also provided a mineral oil enema. Symptomatic care discussed and prescriptions for stool regimen sent to pharmacy. Return precautions given. Departure - Departure Disposition: Home, Self Care Clinical Impression: Constipation, Hemorrhoids Condition: Stable Instructions: ED Constipation, Sitz Bath, Hemorrhoids Self Care Prescriptions: Hydrocortisone [Anusol-Hc] 30 gm RC QPM #30 gm polyethylene glycoL 3350 [Miralax] 17 gm PO DAILY #15 packet Sennosides/Docusate Sodium [Senna-Docusate Sodium Tablet] 1 each PO QPM #30 tab Comments: You were seen in the emergency department for constipation and hemorrhoids. Prescriptions sent to the [facility] in [place]. Please follow-up with your primary care provider and return to the emergency department if you have any new or worsening symptoms or other concerns.
[2024-02-20 22:15] VITALS: BP 114/58; O2SAT 92
== END 2024-02-20 22:15 | disposition home or self-care (01) ==
LOC: ED 21:27
DX: K59.00 Constipation, unspecified (principal); K64.4 Residual hemorrhoidal skin tags; K64.8 Other hemorrhoids; Z66 Do not resuscitate
CPT/HCPCS: 99283